=== PATIENT | female | born 1985 | race Caucasian/White ===

== ENCOUNTER 2023-03-22 10:07 | Emergency (ER) | payer OTHER, SELFPAY | END 2023-03-22 11:38 | disposition left against medical advice (07) | PROVIDERS: Emergency Provider Emergency Medicine Emergency Medical Services | DX: R10.9 Unspecified abdominal pain (principal) ==

== ENCOUNTER 2023-04-12 12:37 | Emergency (ER) | payer MEDICAID, SELFPAY ==
--- NOTE | ~2023-04-12 | CT_ITS ---
EXAMINATION: CT ABDOMEN AND PELVIS WITHOUT CONTRAST CLINICAL INFORMATION: Left flank pain. COMPARISON: Renal ultrasound 04/12/2023 TECHNIQUE: Multidetector volumetric imaging was performed from the superior aspect of the liver through the pubic symphysis. Sagittal and coronal reformatted images were obtained on the technologist's workstation. This CT examination was performed using dose optimization techniques as appropriate, variously including the following: *Automated exposure control *Adjustment of mA and/or kV according to patient size (this includes techniques or standardized protocols for targeted exams where dose is matched to indication/reason for exam; i.e. extremities or head) *Use of iterative reconstruction technique DLP: 747 mGy-cm FINDINGS: LUNG BASES: No pleural or pericardial effusion. LIVER, GALLBLADDER, AND BILIARY TREE: The liver is normal in size and contour. No focal hepatic lesion or biliary ductal dilatation is present. The gallbladder is unremarkable with no evidence of radiopaque gallstones, gallbladder wall thickening, or obvious pericholecystic inflammatory changes. PANCREAS: No ductal dilatation. SPLEEN: Enlarged. Measures 14.2 cm in AP dimension. ADRENAL GLANDS: No adrenal masses. KIDNEYS AND URETERS: The kidneys are lobulated. Hyperdensities the medullary pyramids. Nonobstructing bilateral renal calculi. The largest on the left measures 5 mm. The largest on the right measures 2 mm. No ureteral calculus. No hydronephrosis or perinephric stranding. BLADDER: No bladder calculus. GASTROINTESTINAL TRACT: Small and large bowel loops are of normal caliber. No small bowel obstruction. Appendix is within normal limits. ABDOMINAL WALL: No significant hernia is appreciated. LYMPH NODES: Stranding at the root of the mesentery with subcentimeter mesenteric lymph nodes. VASCULAR: Normal caliber abdominal aorta. PELVIC VISCERA: The uterus and adnexa are unremarkable. OSSEOUS STRUCTURES: No destructive bone lesions. CT/CT abdomen pelvis wo IV con IMPRESSION: Medullary nephrocalcinosis. Bilateral nonobstructing renal calculi. No hydronephrosis. Mesenteric edema. Splenomegaly.
--- NOTE | ~2023-04-12 | US_ITS ---
EXAMINATION: US RETROPERITONEAL LIMITED (RENAL ONLY) CLINICAL INFORMATION: Medullary sponge kidney. Left flank pain. COMPARISON: 08/10/2021 TECHNIQUE: Real-time imaging of the kidneys. FINDINGS: RIGHT KIDNEY: 10.3 x 4.3 x 5.4 cm (SAG x AP x TRV). Increased echogenicity of the medullary pyramids. No hydronephrosis. Upper pole cyst measures 0.9 x 0.8 x 0.6 cm. LEFT KIDNEY: 11.1 x 4.6 x 4.4 cm (SAG x AP x TRV). Increased echogenicity of the medullary pyramids. No hydronephrosis. Scattered foci of twinkle artifact may represent nonobstructing calculi. US/US renal BI IMPRESSION: Medullary sponge kidney. Possible nonobstructing left renal calculi. No hydronephrosis.
--- NOTE | 2023-04-12 12:39 | ED.ABDPAIN ---
HPI - Abdominal Pain General Chief Complaint: Abdominal Pain Stated Complaint: left side kidney stone pain Time Seen by Provider: 04/12/23 13:08 Source: patient Mode of arrival: ambulatory Limitations: no limitations History of Present Illness HPI narrative: Patient comes to the emergency room complaining of left-sided flank pain. Patient states that she has history of medullaris sponge kidney, she has had multiple bilateral lithotripsies. Today, around 3 in the morning, 10 hours ago, patient started having left-sided flank pain that woke her up from sleep. Patient denies hematuria dysuria, no abdominal pain, complaining of nausea. Patient took Toradol, Flomax, Zofran. Her symptoms decreased for about 2 hours but then they returned again and have been constant since then. Related Data Previous Rx's Medication Instructions Recorded ketorolac 10 mg tablet 10 mg PO TID PRN pain #14 tabs 04/12/23 tamsulosin 0.4 mg capsule (Flomax) 0.4 mg PO DAILY #14 caps 04/12/23 Allergies Allergy/AdvReac Type Severity Reaction Status Date / Time amoxicillin Allergy Rash Verified 04/12/23 12:42 droperidol Allergy Hallucinati Verified 04/12/23 12:42 ons morphine Allergy Vomiting Verified 04/12/23 12:42 Penicillins [PCN] Allergy Rash Verified 04/12/23 12:42 Review of Systems Review of Systems Constitutional : No Weight loss, No Fever, No Chills, No Night Sweats, No Fatigue, No Malaise ENT/Mouth : No Hearing loss, No Ear Pain, No Nasal Congestion, No Sinus Pain, No Hoarseness, No sore throat, No Rhinorrhea, No Swallowing Difficulty Eyes: No Eye Pain, No Swelling, No Redness, No Foreign Body, No Discharge, No Vision Changes Cardiovascular : No Chest Pain, No SOB, No Dyspnea on Exertion, No Orthopnea, No Edema, No Palpitations Respiratory : No Cough, No Sputum, No Wheezing, No Smoke Exposure, No Dyspnea Gastrointestinal : No Nausea, No Vomiting, No Diarrhea, No Constipation, No abdominal Pain, No Hematochezia, No Melena Genitourinary : no irregular bleeding, No Dysuria, No Urinary Frequency, No Hematuria, No Urinary Incontinence, No Urgency, complaining of left-sided Flank Pain, No Urinary Flow Changes, No Hesitancy Musculoskeletal : No joint pain, No Myalgias, No Joint Swelling Skin : No Skin Lesions, No rash Neuro : No Weakness, No Numbness, No Paresthesias, No Loss of Consciousness, No Dizziness, No Headache Psych : No Anxiety/Panic, No Depression, No SI/HI/AH/VH, No Social Issues, Heme/Lymph: No Bruising, No Bleeding,No Lymphadenopathy Endocrine : No Polyuria, No Polydipsia, No Temperature Intolerance [facility] Past Medical History Medical History (Updated 04/12/23 @ 15:58 by Dori Weldon MD) Medullary sponge kidney Surgical History (Updated 04/12/23 @ 13:19 by Dori Weldon MD) H/O lithotripsy Social History Social History Smoked in Last 30 Days: No Use of substances other than those prescribed or required for medical reasons: No Advance Directives: No Physical Exam ED Vital Signs: Vital Signs - 24 hr 04/12/23 12:42 04/12/23 13:43 04/12/23 14:33 Temperature 97.1 F 98.2 F Pulse Rate 88 80 76 Respiratory Rate 18 16 19 Blood Pressure 142/77 H 114/64 104/70 Pulse Oximetry 97 98 98 Oxygen Delivery Method Room Air Room Air BMI result Body Mass Index 37.8 Const Other: Appearance: Alert. Oriented X3. No acute distress but looks uncomfortable Eyes: Pupils equal, round and reactive to light. ENT: Pharynx normal. Neck: Normal inspection. Neck supple. No lymph nodes noted. No crepitus CVS: Normal heart rate and rhythm. Pulses normal. Normal S1 and S2 Respiratory: No respiratory distress. Breath sounds normal. No Wheezing. No rales Abdomen: Soft and nontender. No rigidity. No distention. Left-sided CVA tenderness Skin: Skin warm and dry. Normal skin color. Normal skin turgor. Extremities: No lower extremity edema. No Lacerations. No Rash Neuro: Oriented X 3. No motor deficit. No sensory deficit. Moving all extremities. No slurred speech. CN 2 through 12 grossly intact Psych: calm, cooperative, normal affect Course Course Course Narrative: RME: 37yo F w/PMHx Medullary Sponge kidney c/o L flank pain, nausea and urinary hesitancy x 3AM. Took Toradol, Flomax & Zofran this AM w/little relief Labs, UA, Renal US, IVF ordered Full HPI, ROS and PE to be performed by primary ED provider. Medical Decision Making Medical Decision Making [facility] Narrative: -patient seems to be mildly dehydrated, receiving IV fluids, Toradol, Zofran -labs and ultrasound pending -patient's potassium level is 3.0, patient being given p.o. potassium. -creatinine levels within normal limits, BUN normal as well. Urinalysis positive for blood, likely secondary to kidney stone versus blood from current menstruatio. Note UTI -patient continues having significant left-sided flank pain. Toradol did not help, patient receiving now 1 dose of Dilaudid, patient states she does not do well with morphine. Medications seeking not suspected -CT scan of abdomen/pelvis pending -I discussed the CT scan findings with the patient, no ureterolithiasis. It is possible the patient may have passed a kidney stone and is now having renal colic. -patient requested 1 more dose of Dilaudid. Differential Diagnosis Differential Diagnoses: The differential diagnosis associated with the presentation includes (Ureterolithiasis, pyelonephritis, renal infarct, musculoskeletal pain) Admission/Observation Consideration of admission/observation: Escalation of care including admission/observation considered Lab Data [facility] Lab Attestation statement: I reviewed the patient's lab results. White blood cell count within normal limits, UTI negative, urinalysis positive for blood from menstruation 04/12/23 13:22 04/12/23 13:22 Labs: Lab Results 04/12/23 04/12/23 04/12/23 Range/Units 13:22 13:22 13:22 WBC 9.4 (4.8-10.8) X10*3/uL RBC 4.82 (4.20-5.50) X10*6/uL Hgb 13.0 (12.0-16.0) g/dl Hct 38.6 (37.0-47.0) % MCV 80.1 (80.0-98.0) fL MCH 27.0 (27.0-33.0) pg MCHC 33.7 (31.0-35.0) g/dl RDW 13.8 (11.0-16.0) % Plt Count 229 (160-400) X10*3/uL MPV 9.6 (9.4-12.3) fL Immature Gran % (Auto) 0.4 (0.0-0.4) % Neut % (Auto) 68.4 (45-73) % Lymph % (Auto) 23.0 (20-40) % [place] % (Auto) 5.2 (2-11) % Eos % (Auto) 2.4 (0-4) % Baso % (Auto) 0.6 (0-2) % Lymph # (Auto) 2.2 (1.2-4.9) X10*3/uL [place] # (Auto) 0.5 (0.1-1.2) X10*3/uL Eos # (Auto) 0.2 (0.0-0.4) X10*3/uL Baso # (Auto) 0.1 (0.0-0.2) X10*3/uL Abs Immat Gran (auto) 0.04 H (0.00-0.03) X10*3/uL Absolute Neuts (auto) 6.4 (2.0-8.3) x10*3/uL Absolute Nucleated RBC 0.000 (0.0-0.012) X10*3/uL Nucleated RBC % (auto) 0.0 (0.0-0.2) /100WBC PT 11.7 (10.0-13.1) SEC INR 1.0 (0.9-1.1) Sodium 135 (135-145) mmol/L Potassium 3.0 L (3.3-5.1) mmol/L Chloride 101 (96-108) mmol/L Carbon Dioxide 27 (22-29) mmol/L Anion Gap 10 L (12-20) BUN 12 (9-16) mg/dL Creatinine 0.83 (0.5-1.4) mg/dL Estim Creat Clear Calc 108.5 Estimated GFR > 60 Random Glucose 85 (60-115) mg/dL Calcium 9.7 (8.4-10.2) mg/dL Magnesium 1.8 (1.6-2.6) mg/dL Total Bilirubin 0.7 (0.0-1.0) mg/dL Direct Bilirubin 0.2 (0.0-0.5) mg/dL AST 25 (5-31) U/L ALT 23 (0-31) U/L Alkaline Phosphatase 81 (39-117) U/L Total Protein 7.8 (6.5-8.0) g/dL Albumin 3.9 (3.5-5.0) g/dL Lipase 25 (8-78) U/L Urine Color Urine Appearance Urine pH (5.0-9.0) Ur Specific [place] (1.005-1.025) Urine Protein (Neg-Trace) mg/dL Urine Glucose (UA) (Negative) mg/dL Urine Ketones (Negative) mg/dL Urine Blood (Negative) Urine Nitrite (Negative) Ur Leukocyte Esterase (Negative) Urine RBC (0-2) /HPF Urine WBC (0-5) /HPF Ur Squamous Epith Cells (0-2) /HPF Urine Bacteria (None Seen) Hyaline Casts (0-2) /LPF 04/12/23 Range/Units 13:23 WBC (4.8-10.8) X10*3/uL RBC (4.20-5.50) X10*6/uL Hgb (12.0-16.0) g/dl Hct (37.0-47.0) % MCV (80.0-98.0) fL MCH (27.0-33.0) pg MCHC (31.0-35.0) g/dl RDW (11.0-16.0) % Plt Count (160-400) X10*3/uL MPV (9.4-12.3) fL Immature Gran % (Auto) (0.0-0.4) % Neut % (Auto) (45-73) % Lymph % (Auto) (20-40) % [place] % (Auto) (2-11) % Eos % (Auto) (0-4) % Baso % (Auto) (0-2) % Lymph # (Auto) (1.2-4.9) X10*3/uL [place] # (Auto) (0.1-1.2) X10*3/uL Eos # (Auto) (0.0-0.4) X10*3/uL Baso # (Auto) (0.0-0.2) X10*3/uL Abs Immat Gran (auto) (0.00-0.03) X10*3/uL Absolute Neuts (auto) (2.0-8.3) x10*3/uL Absolute Nucleated RBC (0.0-0.012) X10*3/uL Nucleated RBC % (auto) (0.0-0.2) /100WBC PT (10.0-13.1) SEC INR (0.9-1.1) Sodium (135-145) mmol/L Potassium (3.3-5.1) mmol/L Chloride (96-108) mmol/L Carbon Dioxide (22-29) mmol/L Anion Gap (12-20) BUN (9-16) mg/dL Creatinine (0.5-1.4) mg/dL Estim Creat Clear Calc Estimated GFR Random Glucose (60-115) mg/dL Calcium (8.4-10.2) mg/dL Magnesium (1.6-2.6) mg/dL Total Bilirubin (0.0-1.0) mg/dL Direct Bilirubin (0.0-0.5) mg/dL AST (5-31) U/L ALT (0-31) U/L Alkaline Phosphatase (39-117) U/L Total Protein (6.5-8.0) g/dL Albumin (3.5-5.0) g/dL Lipase (8-78) U/L Urine Color Yellow Urine Appearance Clear Urine pH 7.5 (5.0-9.0) Ur Specific [place] 1.020 (1.005-1.025) Urine Protein Negative (Neg-Trace) mg/dL Urine Glucose (UA) Negative (Negative) mg/dL Urine Ketones Negative (Negative) mg/dL Urine Blood Moderate (2+) H (Negative) Urine Nitrite Negative (Negative) Ur Leukocyte Esterase Negative (Negative) Urine RBC >20 H (0-2) /HPF Urine WBC 6-10 H (0-5) /HPF Ur Squamous Epith Cells 6-10 (0-2) /HPF Urine Bacteria 1+ (None Seen) Hyaline Casts 0-2 (0-2) /LPF Independent Interpretation I performed an independent interpretation of an: CT Scan (My interpretation of CT scan of the abdomen pelvis: No ureterolithiasis, stones present in left kidney) Radiology Impression Discussion of test interpretation with radiology: I have reviewed the radiologist's reading. Radiologist Impression: FINDINGS: LUNG BASES: No pleural or pericardial effusion.? LIVER, GALLBLADDER, AND BILIARY TREE: The liver is normal in size and contour. No focal hepatic lesion or biliary ductal dilatation is present. The gallbladder is unremarkable with no evidence of radiopaque gallstones, gallbladder wall thickening, or obvious pericholecystic inflammatory changes.? PANCREAS: No ductal dilatation. SPLEEN: Enlarged. Measures 14.2 cm in AP dimension. ADRENAL GLANDS: No adrenal masses. KIDNEYS AND URETERS: The kidneys are lobulated. Hyperdensities the medullary pyramids. Nonobstructing bilateral renal calculi. The largest on the left measures 5 mm. The largest on the right measures 2 mm. No ureteral calculus. No hydronephrosis or perinephric stranding. BLADDER: No bladder calculus. GASTROINTESTINAL TRACT: Small and large bowel loops are of normal caliber. No small bowel obstruction. Appendix is within normal limits. ABDOMINAL WALL: No significant hernia is appreciated.? LYMPH NODES: Stranding at the root of the mesentery with subcentimeter mesenteric lymph nodes. VASCULAR: Normal caliber abdominal aorta. PELVIC VISCERA: The uterus and adnexa are unremarkable.? OSSEOUS STRUCTURES: No destructive bone lesions. CT/CT abdomen pelvis wo IV con IMPRESSION: Medullary nephrocalcinosis. Bilateral nonobstructing renal calculi. No hydronephrosis. ? Mesenteric edema. ? Splenomegaly. Prescription Management I considered prescription management with: Pain Medication (Toradol, 1st dose given IV in the emergency room) Medications Administered Discontinued Medications Generic Name Dose Route Start Last Admin Trade Name Freq PRN Reason Stop Dose Admin Hydromorphone HCl 0.5 mg 04/12/23 14:10 04/12/23 14:31 Hydromorphone Hcl 0.5 Mg/0.5 Ml Syringe IVPUSH 04/12/23 14:11 0.5 mg ONCE ONE Administration Protocol Sodium Chloride 1,000 mls @ 999 mls/hr 04/12/23 12:45 04/12/23 15:02 Ns IV 04/12/23 13:45 Infused .Q1H1M HARRY Infusion Ketorolac Tromethamine 30 mg 04/12/23 13:16 04/12/23 13:40 Ketorolac Tromethamine 30 Mg/Ml Vial IVPUSH 04/12/23 13:17 30 mg ONCE ONE Administration Ondansetron HCl 4 mg 04/12/23 13:16 04/12/23 13:42 Ondansetron Hcl 4 Mg/2 Ml Vial IVPUSH 04/12/23 13:17 4 mg ONCE ONE Administration Potassium Chloride 40 meq 04/12/23 14:10 04/12/23 14:33 Potassium Chloride Packet 20 Meq Packet PO 04/12/23 14:11 40 meq ONCE ONE Administration Critical Care Time Critical Care Time Critical Care Time: Yes Total Critical Care Time: 30 Attestation: I have personally provided critical care time. Time includes review of lab data, radiology results, discussion with consultants, and monitoring for potential decompensation. Intervention performed as documented. Discharge Plan Discharge Clinical Impression: Acute left flank pain Patient Disposition: Home, Self-Care Instructions: Flank Pain (ED) Additional Instructions: Please follow-up with your primary care physician tomorrow. If you have any worsening or new symptoms, please return to the emergency room or call 911 Prescriptions: New ketorolac 10 mg tablet 10 mg PO TID PRN (Reason: pain) Qty: 14 0RF tamsulosin [Flomax] 0.4 mg capsule 0.4 mg PO DAILY Qty: 14 0RF
[2023-04-12 12:42] VITALS: BP 142/77; PULSE 88; RESP 18; TEMP 36.2; O2SAT 97; BMI 37.8
[2023-04-12 13:34] LABS: Basophils Absolute Auto 0.1 X10*3/uL (0.0-0.2); Basophils Percent Auto 0.6 % (0-2); Eosinophils Absolute Auto 0.2 X10*3/uL (0.0-0.4); Eosinophils Percent Auto 2.4 % (0-4); Hematocrit 38.6 % (37.0-47.0); Imm Gran Abs Auto 0.04 X10*3/uL (0.00-0.03); Imm Gran Pct Auto 0.4 % (0.0-0.4); Lymphocytes Absolute Auto 2.2 X10*3/uL (1.2-4.9); MANUAL DIFF FLAG NO; Mean Corpuscular HGB Conc 33.7 g/dl (31.0-35.0); Mean Corpuscular Volume 80.1 fL (80.0-98.0); Mean Platelet Volume 9.6 fL (9.4-12.3); Monocytes Absolute Auto 0.5 X10*3/uL (0.1-1.2); Monocytes Percent Auto 5.2 % (2-11); Neutrophils Absolute Auto 6.4 x10*3/uL (2.0-8.3); Neutrophils Percent Auto 68.4 % (45-73); Platelet Count 229 X10*3/uL (160-400); Red Blood Count 4.82 X10*6/uL (4.20-5.50); Red Cell Distribution Width 13.8 % (11.0-16.0); White Blood Count 9.4 X10*3/uL (4.8-10.8)
[2023-04-12 13:36] LABS: Appearance Urine Clear; Color Urine Yellow; Glucose Urine UA Negative (Negative); Leukocyte Esterase Urine Negative (Negative); Nitrite Urine Negative (Negative); PH 7.5 (5.0-9.0); UMIC TRIGGER UACC YES; Urine Blood Moderate (2+) (Negative); Urine Ketones Negative (Negative); Urine Protein Negative (Neg-Trace)
[2023-04-12] MEDS: Ketorolac Tromethamine 30 MG/ML VIAL IVPUSH (13:40)
[2023-04-12] MEDS: 0.9 % Sodium Chloride 1,000 ML 999 ML IV (13:40)
[2023-04-12 13:42] LABS: Bacteria Urine 1+ (None Seen); Hyaline Casts Urine 0-2 /LPF (0-2); RBC Urine >20 /HPF (0-2); UACC Culture Trigger YES
[2023-04-12 13:42] LABS: Prothrombin Time 11.7 SEC (10.0-13.1)
[2023-04-12] MEDS: ondansetron HCL 4 MG/2 ML VIAL IVPUSH (13:42)
[2023-04-12 13:43] VITALS: BP 114/64; PULSE 80; RESP 16; TEMP 36.8; O2SAT 98
[2023-04-12 14:09] LABS: Alanine Aminotransferase 23 U/L (0-31); Albumin Level 3.9 g/dL (3.5-5.0); Alkaline Phosphatase 81 U/L (39-117); Anion Gap 10 (12-20); Aspartate Amino Transferase 25 U/L (5-31); Bilirubin Direct 0.2 mg/dL (0.0-0.5); Bilirubin Total 0.7 mg/dL (0.0-1.0); Blood Urea Nitrogen 12 mg/dL (9-16); Calcium 9.7 mg/dL (8.4-10.2); Carbon Dioxide 27 mmol/L (22-29); Chloride 101 mmol/L (96-108); Creatinine Clr Calc Pharmacy 108.5; Estimated Glomerular Filt Rate > 60; Glucose Random 85 mg/dL (60-115); Lipase 25 U/L (8-78); Magnesium 1.8 mg/dL (1.6-2.6); Sodium 135 mmol/L (135-145); Total Protein 7.8 g/dL (6.5-8.0)
[2023-04-12] MEDS: HYDROmorphone HCl 0.5 MG/0.5 ML SYRINGE IVPUSH ×2 (14:31→16:13)
[2023-04-12 14:33] VITALS: BP 104/70; PULSE 76; RESP 19; O2SAT 98
[2023-04-12] MEDS: Potassium Chloride Packet 20 MEQ PACKET 40 MEQ PO (14:33)
[2023-04-12 16:12] VITALS: BP 111/54; PULSE 72; RESP 16; TEMP 36.7; O2SAT 98
[2023-04-12 16:13] VITALS: RESP 16
== END 2023-04-12 16:24 | disposition home or self-care (01) ==
PROVIDERS: Physician Assistant; Emergency Provider Emergency Medicine
DX: R10.9 Unspecified abdominal pain (principal); R16.1 Splenomegaly, not elsewhere classified; Z79.899 Other long term (current) drug therapy
CPT/HCPCS: 36415; 74176; 76775; 80048; 80076; 81001; 83690; 83735; 85025; 85610; 87086; 96361; 96374; 96375; 96376; 99284; 99285; J1170; J1885; J2405

== ENCOUNTER 2023-06-16 18:04 | Emergency (ER) | payer MEDICAID, SELFPAY ==
--- NOTE | 2023-06-16 18:20 | PC.NURSE ---
PT REFUSING TO BE TRIAGED. STATED SHE PASSED HER KIDNEY STONE AND DOES NOT WANT TO SPEAK TO STAFF.
== END 2023-06-17 03:14 | disposition left against medical advice (07) ==
PROVIDERS: Emergency Provider Emergency Medicine
DX: R10.9 Unspecified abdominal pain (principal)

== ENCOUNTER 2023-06-17 17:59 | Emergency (ER) | payer OTHER, SELFPAY ==
--- NOTE | ~2023-06-17 | US_ITS ---
EXAMINATION: US RETROPERITONEAL LIMITED (RENAL ONLY) CLINICAL INFORMATION: Right flank pain. History of medullary sponge kidney. COMPARISON: Portions of CT 04/12/23 TECHNIQUE: Bilateral renal ultrasound FINDINGS: RIGHT KIDNEY: 10.0 x 4.3 x 4.8 cm (SAG x AP x TRV). There is increased echogenicity of the medullary pyramids. The cortex is relatively thin. There is no dilation of the urinary collecting system. There is a 1.2 cm round mass in the mid right kidney with some dependent bright echoes. This could represent a complicated cyst. Bright reflectors within the region of the medullary pyramids could be related to medullary sponge disease. LEFT KIDNEY: 11.1 x 4.5 x 4.8 cm (SAG x AP x TRV). There is no dilation of the urinary collecting system on the left. There are innumerable scattered tiny bright reflectors in the region of the medullary pyramids. No suspicious mass or perinephric collection US/US renal BI IMPRESSION: Pattern consistent with medullary sponge kidneys. Numerous bright reflectors likely secondary to tiny calculi. No evidence of obstruction
[2023-06-17 18:36] VITALS: BP 124/88; PULSE 101; RESP 18; TEMP 36.7; O2SAT 97; BMI 35.3
--- NOTE | 2023-06-17 18:36 | ED.ABDPAIN ---
HPI - Abdominal Pain General Chief Complaint: Abdominal Pain Stated Complaint: Rightside kidneystone pain Time Seen by Provider: 06/17/23 20:20 Source: patient Mode of arrival: ambulatory Limitations: no limitations History of Present Illness HPI narrative: 37-year-old female with history of multiple kidney stones since age of 18 who presents to the ER for evaluation of a right-sided flank pain and kidney pain it is that worsened today at 4-5:00 o'clock. She states she had acute onset of the pain yesterday morning, pain woke her up out of sleep. She thinks she passed a small kidney stone yesterday. She has been taking Flomax, Zofran and Toradol at home. She states she follows with urologist and has had several episodes of kidney stones which she has passed on her own, up to 11 mm. She has never required lithotripsy. She denies any dysuria or gross hematuria. No fever but she has had chills and nausea. No vomiting. No abdominal pain. MD elicited complaint: flank pain Pertinent past history: kidney stones Onset (ago): day(s) (1) Pain Consistency: constant Location: R flank Severity: severe Pain scale (0-10): 10 Quality: stabbing and sharp Radiation: none Migration to: no migration Exacerbating factors: movement Relieving factors: medication Context: history of similar episodes Associated symptoms: nausea and chills Treatments prior to arrival: NSAIDs Related Data Previous Rx's Medication Instructions Recorded ketorolac 10 mg tablet 10 mg PO TID PRN pain #14 tabs 04/12/23 tamsulosin 0.4 mg capsule (Flomax) 0.4 mg PO DAILY #14 caps 04/12/23 cefuroxime axetil 250 mg tablet 250 mg PO BID 7 days #14 tabs 06/17/23 oxycodone 5 mg tablet 5 mg PO Q8H PRN severe pain (scale 06/17/23 score 7-10) #6 tabs Allergies Allergy/AdvReac Type Severity Reaction Status Date / Time amoxicillin Allergy Rash Verified 04/12/23 12:42 droperidol Allergy Hallucinati Verified 04/12/23 12:42 ons morphine Allergy Vomiting Verified 04/12/23 12:42 Penicillins [PCN] Allergy Rash Verified 04/12/23 12:42 Review of Systems Review of Systems Yes all other systems are reviewed and are negative PMFSH Past Medical History Medical History (Updated 06/17/23 @ 22:27 by ERIKA De Leon) Medullary sponge kidney Surgical History (Updated 04/12/23 @ 13:19 by Dori Weldon MD) H/O lithotripsy Social History Social History Alcohol intake: never Smoked in Last 30 Days: No Use of substances other than those prescribed or required for medical reasons: No Advance Directives: No Advance Directives Information Provided: Yes Patient : No Physical Exam ED Vital Signs: Vital Signs - 24 hr 06/17/23 18:36 06/17/23 19:41 Temperature 98.0 F Pulse Rate 101 H 88 Respiratory Rate 18 18 Blood Pressure 124/88 129/85 Pulse Oximetry 97 96 Oxygen Delivery Method Room Air Room Air BMI result Body Mass Index 35.3 Appearance: Alert. Oriented X3. No acute distress. Head: normocephalic, atraumatic. Eyes: Pupils equal, round and reactive to light. ENT: Pharynx normal. No tonsillar swelling or exudate. Neck: Normal inspection. Neck supple. CVS: Normal heart rate and rhythm. Pulses normal. Respiratory: No respiratory distress. Breath sounds normal. Abdomen: Soft and nontender. +BS x4. CVA tenderness on the right side. Skin: Skin warm and dry. Normal skin color. Normal skin turgor. No rashes. Extremities: No lower extremity edema. No joint swelling. Neuro/psych: Oriented X 3. Grossly normal, nonfocal. CN II-XII intact. Normal speech and cognition. Course Course Course Narrative: RME: 37yo F w/PMHx Medullary sponge kidney c/o right flank pain x yesterday with assoc nausea, hematuria, frequency, & chills . Admits to passing small stone yesterday. Took Zofran & Toradol 2hrs [employer] Labs, UA, Renal US ordered Full HPI, ROS and PE to be performed by primary ED provider. Medical Decision Making Medical Decision Making MDM Narrative: 37-year-old female with history of recurrent kidney stones presents to the ER for evaluation of right flank pain and nausea that woke her up out of sleep yesterday. She passed a small stone yesterday. She states the pain is now at 10/10 for the last several hours, no improvement with Toradol at home. Vital signs are stable. Mild tachycardia on arrival, likely due to pain. No fevers. Lab workup showing a mild leukocytosis of 13.3. Normal renal function. Urinalysis shows microscopic hematuria with large blood, trace leukocyte esterase and 6-10 wbc's. There is 2+ bacteria but also some squamous cells. Could be contamination. Given the leukocytosis and her symptoms will cover empirically with Ceftin while awaiting her urine culture. Renal ultrasound was performed which does not show any hydronephrosis or obstruction of the urinary collection system. No obstructing stones. Patient was medicated with Dilaudid, Toradol, fluids. She is urinating normally. Pain is much improved. At this time comfortable discharge home with pain control, empiric antibiotics, Flomax, NSAIDs. She will follow-up with her urologist. Stable for discharge in all questions were answered. Return precautions were discussed Differential Diagnosis Differential Diagnoses: The differential diagnosis associated with the presentation includes Obstructing kidney stone with hydronephrosis, pyelonephritis, renal colic, UTI, acute cholecystitis Admission/Observation Consideration of admission/observation: Escalation of care including admission/observation considered Lab Data MDM Lab Attestation statement: I reviewed the patient's lab results. Mild leukocytosis, possible UTI 06/17/23 18:50 06/17/23 18:50 Labs: Lab Results 06/17/23 06/17/23 06/17/23 Range/Units 18:50 18:50 18:50 WBC 13.3 H (4.8-10.8) X10*3/uL RBC 4.74 (4.20-5.50) X10*6/uL Hgb 12.6 (12.0-16.0) g/dl Hct 37.7 (37.0-47.0) % MCV 79.5 L (80.0-98.0) fL MCH 26.6 L (27.0-33.0) pg MCHC 33.4 (31.0-35.0) g/dl RDW 14.0 (11.0-16.0) % Plt Count 257 (160-400) X10*3/uL MPV 9.7 (9.4-12.3) fL Immature Gran % (Auto) 0.4 (0.0-0.4) % Neut % (Auto) 64.5 (45-73) % Lymph % (Auto) 26.6 (20-40) % [place] % (Auto) 5.6 (2-11) % Eos % (Auto) 2.3 (0-4) % Baso % (Auto) 0.6 (0-2) % Lymph # (Auto) 3.5 (1.2-4.9) X10*3/uL [place] # (Auto) 0.7 (0.1-1.2) X10*3/uL Eos # (Auto) 0.3 (0.0-0.4) X10*3/uL Baso # (Auto) 0.1 (0.0-0.2) X10*3/uL Abs Immat Gran (auto) 0.05 H (0.00-0.03) X10*3/uL Absolute Neuts (auto) 8.6 H (2.0-8.3) x10*3/uL Absolute Nucleated RBC 0.000 (0.0-0.012) X10*3/uL Nucleated RBC % (auto) 0.0 (0.0-0.2) /100WBC Sodium 141 (135-145) mmol/L Potassium 3.3 (3.3-5.1) mmol/L Chloride 104 (96-108) mmol/L Carbon Dioxide 27 (22-29) mmol/L Anion Gap 13 (12-20) BUN 15 (9-16) mg/dL Creatinine 1.05 (0.5-1.4) mg/dL Estim Creat Clear Calc 85.8 Estimated GFR 60 Random Glucose 117 H (60-115) mg/dL Calcium 10.0 (8.4-10.2) mg/dL Magnesium 1.9 (1.6-2.6) mg/dL Total Bilirubin 0.2 (0.0-1.0) mg/dL Direct Bilirubin < 0.2 (0.0-0.5) mg/dL AST 20 (5-31) U/L ALT 20 (0-31) U/L Alkaline Phosphatase 78 (39-117) U/L Total Protein 7.7 (6.5-8.0) g/dL Albumin 4.0 (3.5-5.0) g/dL Lipase 48 (8-78) U/L Urine Color Yellow Urine Appearance Clear Urine pH 6.0 (5.0-9.0) Ur Specific [place] 1.025 (1.005-1.025) Urine Protein 30 (1+) H (Neg-Trace) mg/dL Urine Glucose (UA) Negative (Negative) mg/dL Urine Ketones Trace (Negative) mg/dL Urine Blood Large (3+) H (Negative) Urine Nitrite Negative (Negative) Ur Leukocyte Esterase Trace H (Negative) Urine RBC 0-2 (0-2) /HPF Urine WBC 6-10 H (0-5) /HPF Ur Squamous Epith Cells 6-10 (0-2) /HPF Urine Bacteria 2+ (None Seen) Hyaline Casts 0-2 (0-2) /LPF Urine Test (NEGATIVE) 06/17/23 Range/Units 18:50 WBC (4.8-10.8) X10*3/uL RBC (4.20-5.50) X10*6/uL Hgb (12.0-16.0) g/dl Hct (37.0-47.0) % MCV (80.0-98.0) fL MCH (27.0-33.0) pg MCHC (31.0-35.0) g/dl RDW (11.0-16.0) % Plt Count (160-400) X10*3/uL MPV (9.4-12.3) fL Immature Gran % (Auto) (0.0-0.4) % Neut % (Auto) (45-73) % Lymph % (Auto) (20-40) % [place] % (Auto) (2-11) % Eos % (Auto) (0-4) % Baso % (Auto) (0-2) % Lymph # (Auto) (1.2-4.9) X10*3/uL [place] # (Auto) (0.1-1.2) X10*3/uL Eos # (Auto) (0.0-0.4) X10*3/uL Baso # (Auto) (0.0-0.2) X10*3/uL Abs Immat Gran (auto) (0.00-0.03) X10*3/uL Absolute Neuts (auto) (2.0-8.3) x10*3/uL Absolute Nucleated RBC (0.0-0.012) X10*3/uL Nucleated RBC % (auto) (0.0-0.2) /100WBC Sodium (135-145) mmol/L Potassium (3.3-5.1) mmol/L Chloride (96-108) mmol/L Carbon Dioxide (22-29) mmol/L Anion Gap (12-20) BUN (9-16) mg/dL Creatinine (0.5-1.4) mg/dL Estim Creat Clear Calc Estimated GFR Random Glucose (60-115) mg/dL Calcium (8.4-10.2) mg/dL Magnesium (1.6-2.6) mg/dL Total Bilirubin (0.0-1.0) mg/dL Direct Bilirubin (0.0-0.5) mg/dL AST (5-31) U/L ALT (0-31) U/L Alkaline Phosphatase (39-117) U/L Total Protein (6.5-8.0) g/dL Albumin (3.5-5.0) g/dL Lipase (8-78) U/L Urine Color Urine Appearance Urine pH (5.0-9.0) Ur Specific [place] (1.005-1.025) Urine Protein (Neg-Trace) mg/dL Urine Glucose (UA) (Negative) mg/dL Urine Ketones (Negative) mg/dL Urine Blood (Negative) Urine Nitrite (Negative) Ur Leukocyte Esterase (Negative) Urine RBC (0-2) /HPF Urine WBC (0-5) /HPF Ur Squamous Epith Cells (0-2) /HPF Urine Bacteria (None Seen) Hyaline Casts (0-2) /LPF Urine Test NEGATIVE (NEGATIVE) Independent Interpretation I performed an independent interpretation of an: Ultrasound Interpretation: No appreciated hydronephrosis, agree with radiologist read Radiology Impression Discussion of test interpretation with radiology: I have reviewed the radiologist's reading. Radiologist Impression: EXAMINATION: US RETROPERITONEAL LIMITED (RENAL ONLY) CLINICAL INFORMATION: Right flank pain. History of medullary sponge kidney. COMPARISON: Portions of CT 04/12/23 TECHNIQUE: Bilateral renal ultrasound FINDINGS: RIGHT KIDNEY: 10.0 x 4.3 x 4.8 cm (SAG x AP x TRV). There is increased echogenicity of the medullary pyramids. The cortex is relatively thin. There is no dilation of the urinary collecting system. There is a 1.2 cm round mass in the mid right kidney with some dependent bright echoes. This could represent a complicated cyst. Bright reflectors within the region of the medullary pyramids could be related to medullary sponge disease. LEFT KIDNEY: 11.1 x 4.5 x 4.8 cm (SAG x AP x TRV). There is no dilation of the urinary collecting system on the left. There are innumerable scattered tiny bright reflectors in the region of the medullary pyramids. No suspicious mass or perinephric collection US/US renal BI IMPRESSION: Pattern consistent with medullary sponge kidneys. ? Numerous bright reflectors likely secondary to tiny calculi. ? No evidence of obstruction External Record Review External record reviewed: Outpatient record and Prior outpatient labs Tests considered The following testing was considered but not selected: CT scan considered Prescription Management I considered prescription management with: Pain Medication and Antibiotic Chronic Conditions Patient?s care impacted by: Other (recurrent kidney stones) Medications Administered Discontinued Medications Generic Name Dose Route Start Last Admin Trade Name Freq PRN Reason Stop Dose Admin Cefuroxime Axetil 500 mg 06/17/23 22:24 06/17/23 22:39 Cefuroxime Axetil 500 Mg Tablet PO 06/17/23 22:25 500 mg ONCE ONE Administration Hydromorphone HCl 1 mg 06/17/23 20:35 06/17/23 20:41 Hydromorphone Hcl 1 Mg/Ml Syringe IVPUSH 06/17/23 20:36 1 mg ONCE ONE Administration Protocol Sodium Chloride 1,000 mls @ 999 mls/hr 06/17/23 20:30 06/17/23 21:57 Ns IVCONT 06/17/23 21:30 Infused .Q1H1M HARRY Infusion Ketorolac Tromethamine 30 mg 06/17/23 20:24 06/17/23 20:40 Ketorolac Tromethamine 30 Mg/Ml Vial IVPUSH 06/17/23 20:25 30 mg ONCE ONE Administration Ondansetron HCl 4 mg 06/17/23 20:24 06/17/23 20:41 Ondansetron Hcl 4 Mg/2 Ml Vial IVPUSH 06/17/23 20:25 4 mg ONCE ONE Administration Oxycodone HCl 5 mg 06/17/23 21:30 06/17/23 21:37 Oxycodone Hcl Immed Release 5 Mg Tablet PO 06/17/23 21:31 5 mg ONCE ONE Administration Critical Care Time Critical Care Time Critical Care Time: No Discharge Plan Discharge Clinical Impression: Renal colic Patient Disposition: Home, Self-Care Instructions: Renal Colic (ED) Additional Instructions: Your ultrasound did not show any evidence of an obstructing kidney stone. Take her previously prescribed Toradol or ibuprofen as needed for [id number] pain. Recommend starting Flomax. Take the prescribed oxycodone as needed for severe pain only. Drink plenty of water. Follow-up with your urologist and primary care doctor. If you develop new or worsening symptoms call 911 or come back to the ER for further evaluation. Prescriptions: New cefuroxime axetil 250 mg tablet 250 mg PO BID 7 Days Qty: 14 0RF oxycodone 5 mg tablet 5 mg PO Q8H PRN (Reason: severe pain (scale score 7-10)) Qty: 6 0RF Rx Instructions: Partial Fill upon patient request. No Action ketorolac 10 mg tablet 10 mg PO TID PRN (Reason: pain) Qty: 14 0RF tamsulosin [Flomax] 0.4 mg capsule 0.4 mg PO DAILY Qty: 14 0RF Interventions: ED Discharge Assessment Last Done: 06/17/23 22:54 Discharge Date/Time: 06/17/23 22:56
[2023-06-17 18:55] LABS: MANUAL DIFF FLAG NO
[2023-06-17 18:59] LABS: Appearance Urine Clear; Color Urine Yellow; Glucose Urine UA Negative (Negative); Leukocyte Esterase Urine Trace (Negative); Nitrite Urine Negative (Negative); Specific Gravity - Urine 1.025 (1.005-1.025); UMIC TRIGGER UACC YES; Urine Blood Large (3+) (Negative); Urine Ketones Trace mg/dL (Negative); Urine Protein 30 (1+) mg/dL (Neg-Trace)
[2023-06-17 19:00] LABS: UPreg QC Valid YES; Urine Pregnancy NEGATIVE (NEGATIVE)
[2023-06-17 19:02] LABS: Basophils Absolute Auto 0.1 X10*3/uL (0.0-0.2); Basophils Percent Auto 0.6 % (0-2); Eosinophils Absolute Auto 0.3 X10*3/uL (0.0-0.4); Eosinophils Percent Auto 2.3 % (0-4); Hematocrit 37.7 % (37.0-47.0); Hemoglobin 12.6 g/dl (12.0-16.0); Imm Gran Abs Auto 0.05 X10*3/uL (0.00-0.03); Imm Gran Pct Auto 0.4 % (0.0-0.4); Lymphocytes Absolute Auto 3.5 X10*3/uL (1.2-4.9); Lymphocytes Percent Auto 26.6 % (20-40); Mean Corpuscular HGB Conc 33.4 g/dl (31.0-35.0); Mean Corpuscular Hemoglobin 26.6 pg (27.0-33.0); Mean Corpuscular Volume 79.5 fL (80.0-98.0); Mean Platelet Volume 9.7 fL (9.4-12.3); Monocytes Absolute Auto 0.7 X10*3/uL (0.1-1.2); Monocytes Percent Auto 5.6 % (2-11); Neutrophils Absolute Auto 8.6 x10*3/uL (2.0-8.3); Neutrophils Percent Auto 64.5 % (45-73); Platelet Count 257 X10*3/uL (160-400); Red Blood Count 4.74 X10*6/uL (4.20-5.50); White Blood Count 13.3 X10*3/uL (4.8-10.8)
[2023-06-17 19:16] LABS: Alanine Aminotransferase 20 U/L (0-31); Alkaline Phosphatase 78 U/L (39-117); Anion Gap 13 (12-20); Aspartate Amino Transferase 20 U/L (5-31); Bilirubin Direct < 0.2 mg/dL (0.0-0.5); Bilirubin Total 0.2 mg/dL (0.0-1.0); Blood Urea Nitrogen 15 mg/dL (9-16); Carbon Dioxide 27 mmol/L (22-29); Chloride 104 mmol/L (96-108); Creatinine Clr Calc Pharmacy 85.8; Estimated Glomerular Filt Rate 60; Glucose Random 117 mg/dL (60-115); Lipase 48 U/L (8-78); Magnesium 1.9 mg/dL (1.6-2.6); Potassium 3.3 mmol/L (3.3-5.1); Sodium 141 mmol/L (135-145); Total Protein 7.7 g/dL (6.5-8.0)
[2023-06-17 19:18] LABS: Bacteria Urine 2+ (None Seen); Hyaline Casts Urine 0-2 /LPF (0-2); RBC Urine 0-2 /HPF (0-2); UACC Culture Trigger YES
[2023-06-17 19:41] VITALS: BP 129/85; PULSE 88; RESP 18; O2SAT 96
[2023-06-17] MEDS: Ketorolac Tromethamine 30 MG/ML VIAL IVPUSH (20:40)
[2023-06-17] MEDS: ondansetron HCL 4 MG/2 ML VIAL IVPUSH (20:41)
[2023-06-17] MEDS: 0.9 % Sodium Chloride 1,000 ML 999 ML IVCONT (20:41)
[2023-06-17] MEDS: HYDROmorphone HCl 1 MG/ML SYRINGE IVPUSH (20:41)
[2023-06-17] MEDS: oxyCODONE HCl Immed Release 5 MG TABLET PO (21:37)
== END 2023-06-17 22:56 | disposition home or self-care (01) ==
PROVIDERS: Physician Assistant; Emergency Provider Student in an Organized Health Care Education/Training Program
DX: N23 Unspecified renal colic (principal); Q61.5 Medullary cystic kidney
CPT/HCPCS: 36415; 76775; 80048; 80076; 81001; 81003; 81025; 83690; 83735; 85025; 87086; 96361; 96374; 96375; 99284; J1170; J1885; J2405

== ENCOUNTER 2023-08-03 20:05 | Emergency (ER) | payer OTHER, SELFPAY ==
--- NOTE | ~2023-08-03 | US_ITS ---
EXAMINATION: US RETROPERITONEAL LIMITED (RENAL ONLY) CLINICAL INFORMATION: Flank pain, history of medullary sponge kidneys. COMPARISON: Ultrasound 06/17/2023. TECHNIQUE: Real-time imaging of the kidneys. FINDINGS: RIGHT KIDNEY: 10.5 x 4.5 x 4.7 cm (SAG x AP x TRV). Again noted increased echogenicity with bright reflectors within the medullary pyramids, in keeping with history of medullary sponge kidney. No renal calculi or hydronephrosis. A 1 x 0.7 x 0.9 cm hypoechoic observation in the lower pole is slightly decreased in size from 1.2 x 1.2 x 1 cm on 06/17/2023. LEFT KIDNEY: 12 x 4.7 x 4.5 cm (SAG x AP x TRV). Similar to the right side, there is increased echogenicity with bright reflectors within the medullary pyramids in keeping with history of medullary sponge kidney. Superimposed within this background, there is suggestion of a few punctate nonobstructive calculi. No focal parenchymal lesions or hydronephrosis. US/US renal BI IMPRESSION: 1. Hyperechogenicity of the renal pyramids in keeping with history of medullary sponge kidney. This background limits evaluation of calculi, however accounting for this limitation, a few nonobstructive calculi are suspected to be present in the left kidney. 2. A 1 cm hypoechoic observation in the lower pole of the right kidney is slightly decreased in size from 06/17/2023; this may represent a cyst, though is not entirely anechoic and posterior through transmission is not confidentially identified. Continued follow-up is recommended to ensure stability.
[2023-08-03 20:10] VITALS: BP 147/87; PULSE 98; RESP 16; TEMP 36.4; O2SAT 98; BMI 39.5
--- NOTE | 2023-08-03 20:11 | ED.ABDPAIN ---
HPI - Abdominal Pain General Chief Complaint: Abdominal Pain Stated Complaint: right flank pain kidney stones Time Seen by Provider: 08/03/23 23:55 Source: patient Mode of arrival: ambulatory Limitations: no limitations History of Present Illness HPI narrative: Patient's history of medullary sponge kidney been to the ER multiple times frequent pain no history of obstructive uropathy patient noticed sharp pain started 2 hours to arrival or less the right flank area took her Toradol without much relief upset with nausea no vomiting patient also noticed a pinkish urine patient took Flomax Zofran Toradol without much response Related Data Previous Rx's Medication Instructions Recorded ketorolac 10 mg tablet 10 mg PO TID PRN pain #14 tabs 04/12/23 tamsulosin 0.4 mg capsule (Flomax) 0.4 mg PO DAILY #14 caps 04/12/23 cefuroxime axetil 250 mg tablet 250 mg PO BID 7 days #14 tabs 06/17/23 oxycodone 5 mg tablet 5 mg PO Q8H PRN severe pain (scale 06/17/23 score 7-10) #6 tabs hydromorphone 2 mg tablet 2 mg PO Q6H PRN pain #14 tabs 08/04/23 (Dilaudid) Allergies Allergy/AdvReac Type Severity Reaction Status Date / Time amoxicillin Allergy Rash Verified 04/12/23 12:42 droperidol Allergy Hallucinati Verified 04/12/23 12:42 ons morphine Allergy Vomiting Verified 04/12/23 12:42 Penicillins [PCN] Allergy Rash Verified 04/12/23 12:42 Review of Systems Review of Systems Yes all other systems are reviewed and are negative PMFSH Past Medical History Medical History Medullary sponge kidney Surgical History H/O lithotripsy Social History Social History Alcohol intake: never Smoked in Last 30 Days: No Use of substances other than those prescribed or required for medical reasons: No Advance Directives: No Advance Directives Information Provided: No Patient : No Physical Exam ED Vital Signs: Vital Signs - 24 hr 08/03/23 20:10 08/04/23 00:05 Temperature 97.6 F 98.7 F Pulse Rate 98 90 Respiratory Rate 16 18 Blood Pressure 147/87 H 140/77 H Pulse Oximetry 98 98 Oxygen Delivery Method Room Air Room Air BMI result Body Mass Index 39.5 Appearance: Alert. Oriented X3. No acute distress. ENT: Pharynx normal. Oral Mucosa moist Neck: Normal inspection. Neck supple. CVS: Normal heart rate and rhythm. Pulses normal. Respiratory: No respiratory distress. Equal air entry bilateral, no wheezing/rales/rhonchi Abdomen: Soft and nontender. Bowel sounds are present, no mass palpable, R CVA tenderness + Skin: Skin warm and dry. Normal skin color. Normal skin turgor. Extremities: No lower extremity edema. No calf tenderness Neuro: Oriented X 3. Course Course Course Narrative: RME: 38-year-old female with past medical history of medullary sponge kidney presenting to the ED complaining of right flank pain x2 hrs. +dysuria & hematuria, denies fever, chills Labs, UA, Renal US ordered Full HPI, ROS and PE to be performed by primary ED provider. Medical Decision Making Medical Decision Making [facility] Narrative: Patient with chronic flank pain with history of mental is labs stable discharge patient home on Dilaudid. Patient ultrasound negative for any obstructive uropathy Differential Diagnosis Differential Diagnoses: The differential diagnosis associated with the presentation includes Kidney stone/model response kidney/UTI Lab Data [facility] Lab Attestation statement: I reviewed the patient's lab results. 08/03/23 20:47 08/03/23 20:47 Labs: Lab Results 08/03/23 08/03/23 Range/Units 20:47 20:48 WBC 12.0 H (4.8-10.8) X10*3/uL RBC 4.75 (4.20-5.50) X10*6/uL Hgb 12.3 (12.0-16.0) g/dl Hct 37.3 (37.0-47.0) % MCV 78.5 L (80.0-98.0) fL MCH 25.9 L (27.0-33.0) pg MCHC 33.0 (31.0-35.0) g/dl RDW 13.9 (11.0-16.0) % Plt Count 217 (160-400) X10*3/uL MPV 9.2 L (9.4-12.3) fL Immature Gran % (Auto) 0.6 H (0.0-0.4) % Neut % (Auto) 66.0 (45-73) % Lymph % (Auto) 25.9 (20-40) % [place] % (Auto) 5.0 (2-11) % Eos % (Auto) 1.9 (0-4) % Baso % (Auto) 0.6 (0-2) % Lymph # (Auto) 3.1 (1.2-4.9) X10*3/uL [place] # (Auto) 0.6 (0.1-1.2) X10*3/uL Eos # (Auto) 0.2 (0.0-0.4) X10*3/uL Baso # (Auto) 0.1 (0.0-0.2) X10*3/uL Abs Immat Gran (auto) 0.07 H (0.00-0.03) X10*3/uL Absolute Neuts (auto) 8.0 (2.0-8.3) x10*3/uL Absolute Nucleated RBC 0.000 (0.0-0.012) X10*3/uL Nucleated RBC % (auto) 0.0 (0.0-0.2) /100WBC Sodium 138 (135-145) mmol/L Potassium 3.0 L (3.3-5.1) mmol/L Chloride 102 (96-108) mmol/L Carbon Dioxide 25 (22-29) mmol/L Anion Gap 14 (12-20) BUN 10 (9-16) mg/dL Creatinine 0.83 (0.5-1.4) mg/dL Estim Creat Clear Calc 114.3 Estimated GFR > 60 Random Glucose 161 H (60-115) mg/dL Calcium 9.4 (8.4-10.2) mg/dL Total Bilirubin 0.2 (0.0-1.0) mg/dL Direct Bilirubin < 0.2 (0.0-0.5) mg/dL AST 22 (5-31) U/L ALT 23 (0-31) U/L Alkaline Phosphatase 77 (39-117) U/L Total Protein 7.9 (6.5-8.0) g/dL Albumin 4.0 (3.5-5.0) g/dL Lipase 35 (8-78) U/L Urine Color Yellow Urine Appearance Cloudy Urine pH 6.0 (5.0-9.0) Ur Specific [place] 1.020 (1.005-1.025) Urine Protein Trace (Neg-Trace) mg/dL Urine Glucose (UA) Negative (Negative) mg/dL Urine Ketones Negative (Negative) mg/dL Urine Blood Large (3+) H (Negative) Urine Nitrite Negative (Negative) Ur Leukocyte Esterase Trace H (Negative) Urine RBC >20 H (0-2) /HPF Urine WBC 6-10 H (0-5) /HPF Ur Squamous Epith Cells 6-10 (0-2) /HPF Urine Bacteria 3+ (None Seen) Hyaline Casts 0-2 (0-2) /LPF Urine Test NEGATIVE (NEGATIVE) Radiology Impression Discussion of test interpretation with radiology: I have reviewed the radiologist's reading. Medications Administered Discontinued Medications Generic Name Dose Route Start Last Admin Trade Name Freq PRN Reason Stop Dose Admin Hydromorphone HCl 2 mg 08/04/23 00:10 08/04/23 00:32 Hydromorphone Hcl 2 Mg Tablet PO 08/04/23 00:11 2 mg ONCE ONE Administration Potassium Chloride 20 meq 08/04/23 00:43 08/04/23 00:55 Potassium Chloride Er 20 Meq Tab.Er.Prt PO 08/04/23 00:44 20 meq ONCE ONE Administration Discharge Plan Discharge Clinical Impression: Medullary sponge kidney Patient Disposition: Home, Self-Care Instructions: Flank Pain (ED) Additional Instructions: Take medication as prescribed by your urologist Doyle for severe pain Follow-up with your urologist Prescriptions: New hydromorphone [Dilaudid] 2 mg tablet 2 mg PO Q6H PRN (Reason: pain) Qty: 14 0RF Rx Instructions: Partial Fill upon patient request. No Action ketorolac 10 mg tablet 10 mg PO TID PRN (Reason: pain) Qty: 14 0RF tamsulosin [Flomax] 0.4 mg capsule 0.4 mg PO DAILY Qty: 14 0RF cefuroxime axetil 250 mg tablet 250 mg PO BID 7 Days Qty: 14 0RF oxycodone 5 mg tablet 5 mg PO Q8H PRN (Reason: severe pain (scale score 7-10)) Qty: 6 0RF Rx Instructions: Partial Fill upon patient request. Interventions: ED Discharge Assessment Last Done: 08/04/23 01:03 Discharge Date/Time: 08/04/23 01:04
[2023-08-03 20:53] LABS: MANUAL DIFF FLAG NO
[2023-08-03 20:56] LABS: Appearance Urine Cloudy; Color Urine Yellow; Glucose Urine UA Negative (Negative); Leukocyte Esterase Urine Trace (Negative); Nitrite Urine Negative (Negative); UMIC TRIGGER UACC YES; Urine Blood Large (3+) (Negative); Urine Ketones Negative (Negative); Urine Protein Trace mg/dL (Neg-Trace)
[2023-08-03 20:56] LABS: Basophils Absolute Auto 0.1 X10*3/uL (0.0-0.2); Basophils Percent Auto 0.6 % (0-2); Eosinophils Absolute Auto 0.2 X10*3/uL (0.0-0.4); Eosinophils Percent Auto 1.9 % (0-4); Hematocrit 37.3 % (37.0-47.0); Hemoglobin 12.3 g/dl (12.0-16.0); Imm Gran Abs Auto 0.07 X10*3/uL (0.00-0.03); Imm Gran Pct Auto 0.6 % (0.0-0.4); Lymphocytes Absolute Auto 3.1 X10*3/uL (1.2-4.9); Lymphocytes Percent Auto 25.9 % (20-40); Mean Corpuscular Hemoglobin 25.9 pg (27.0-33.0); Mean Corpuscular Volume 78.5 fL (80.0-98.0); Mean Platelet Volume 9.2 fL (9.4-12.3); Monocytes Absolute Auto 0.6 X10*3/uL (0.1-1.2); Platelet Count 217 X10*3/uL (160-400); Red Blood Count 4.75 X10*6/uL (4.20-5.50); Red Cell Distribution Width 13.9 % (11.0-16.0)
[2023-08-03 20:57] LABS: UPreg QC Valid YES; Urine Pregnancy NEGATIVE (NEGATIVE)
[2023-08-03 21:06] LABS: Bacteria Urine 3+ (None Seen); Hyaline Casts Urine 0-2 /LPF (0-2); RBC Urine >20 /HPF (0-2); UACC Culture Trigger YES
[2023-08-03 21:14] LABS: Alanine Aminotransferase 23 U/L (0-31); Alkaline Phosphatase 77 U/L (39-117); Anion Gap 14 (12-20); Aspartate Amino Transferase 22 U/L (5-31); Bilirubin Direct < 0.2 mg/dL (0.0-0.5); Bilirubin Total 0.2 mg/dL (0.0-1.0); Blood Urea Nitrogen 10 mg/dL (9-16); Calcium 9.4 mg/dL (8.4-10.2); Carbon Dioxide 25 mmol/L (22-29); Chloride 102 mmol/L (96-108); Creatinine Clr Calc Pharmacy 114.3; Estimated Glomerular Filt Rate > 60; Glucose Random 161 mg/dL (60-115); Lipase 35 U/L (8-78); Sodium 138 mmol/L (135-145); Total Protein 7.9 g/dL (6.5-8.0)
[2023-08-04 00:05] VITALS: BP 140/77; PULSE 90; RESP 18; TEMP 37.1; O2SAT 98
--- NOTE | 2023-08-04 00:07 | PC.NURSE ---
Pt ambulated into room with a steady gait, pt AOx3, Pt reporting 10/10 right sided flank pain tender to palpation, with hot/cold sweats. Pt reports decreased urination with pain when manually expressing urine. Pt denies burning or pain during urination. Pt reports having a hx of kidney stones
[2023-08-04] MEDS: HYDROmorphone HCl 2 MG TABLET PO (00:32)
[2023-08-04] MEDS: Potassium Chloride ER 20 MEQ TAB.ER.PRT PO (00:55)
== END 2023-08-04 01:04 | disposition home or self-care (01) ==
PROVIDERS: Physician Assistant; Emergency Provider Internal Medicine
DX: Q61.5 Medullary cystic kidney (principal); R10.9 Unspecified abdominal pain
CPT/HCPCS: 36415; 76775; 80048; 80076; 81001; 81025; 83690; 85025; 87086; 99284

== ENCOUNTER 2023-12-29 22:58 | Emergency (ER) | payer OTHER, SELFPAY ==
--- NOTE | ~2023-12-29 | CT_ITS ---
EXAMINATION: CT ABDOMEN AND PELVIS WITHOUT CONTRAST CLINICAL INFORMATION: Left flank pain. COMPARISON: None available. TECHNIQUE: Multidetector volumetric imaging was performed from the superior aspect of the liver through the pubic symphysis. Sagittal and coronal reformatted images were obtained on the technologist's workstation. This CT examination was performed using dose optimization techniques as appropriate, variously including the following: *Automated exposure control *Adjustment of mA and/or kV according to patient size (this includes techniques or standardized protocols for targeted exams where dose is matched to indication/reason for exam; i.e. extremities or head) *Use of iterative reconstruction technique DLP: 919 mGy-cm FINDINGS: LUNG BASES: The visualized lung bases are unremarkable. LIVER, GALLBLADDER, AND BILIARY TREE: The liver is normal in size, shape, and attenuation. No focal hepatic lesion or biliary ductal dilatation is present. The gallbladder is unremarkable with no evidence of radiopaque gallstones, gallbladder wall thickening, or obvious pericholecystic inflammatory changes. PANCREAS: Unremarkable. SPLEEN: Unremarkable. ADRENAL GLANDS: Unremarkable. KIDNEYS AND URETERS: The kidneys are normal in size, shape, and attenuation. There are scattered bilateral renal calculi measuring up to 4 mm mid pole left kidney. There is no hydronephrosis. There is a likely subcentimeter cyst mid to upper pole right kidney. BLADDER: Unremarkable. GASTROINTESTINAL TRACT: The small and large bowel are unremarkable. The appendix is unremarkable. ABDOMINAL WALL: No significant hernia is appreciated. LYMPH NODES: Normal. VASCULAR: Unremarkable. PELVIC VISCERA: Unremarkable. OSSEOUS STRUCTURES: Unremarkable. CT/CT abdomen pelvis wo IV con IMPRESSION: Bilateral nonobstructing renal calculi. No hydronephrosis. No acute intra-abdominal process identified. Fleischner guidelines were followed.
[2023-12-29 23:11] VITALS: BP 133/74; PULSE 93; RESP 18; TEMP 37.2; O2SAT 97; BMI 36.6
[2023-12-29 23:39] LABS: Basophils Absolute Auto 0.1 X10*3/uL (0.0-0.2); Basophils Percent Auto 0.8 % (0-2); Eosinophils Absolute Auto 0.2 X10*3/uL (0.0-0.4); Eosinophils Percent Auto 1.6 % (0-4); Hematocrit 38.7 % (37.0-47.0); Hemoglobin 12.7 g/dl (12.0-16.0); Imm Gran Abs Auto 0.04 X10*3/uL (0.00-0.03); Imm Gran Pct Auto 0.4 % (0.0-0.4); Lymphocytes Absolute Auto 2.8 X10*3/uL (1.2-4.9); Lymphocytes Percent Auto 24.8 % (20-40); MANUAL DIFF FLAG NO; Mean Corpuscular HGB Conc 32.8 g/dl (31.0-35.0); Mean Corpuscular Hemoglobin 24.7 pg (27.0-33.0); Mean Corpuscular Volume 75.1 fL (80.0-98.0); Mean Platelet Volume 9.1 fL (9.4-12.3); Monocytes Absolute Auto 0.6 X10*3/uL (0.1-1.2); Neutrophils Absolute Auto 7.7 x10*3/uL (2.0-8.3); Neutrophils Percent Auto 67.4 % (45-73); Platelet Count 256 X10*3/uL (160-400); Red Blood Count 5.15 X10*6/uL (4.20-5.50); White Blood Count 11.4 X10*3/uL (4.8-10.8)
[2023-12-29 23:41] LABS: Appearance Urine Clear; Color Urine Yellow; Glucose Urine UA Negative (Negative); Leukocyte Esterase Urine Negative (Negative); Nitrite Urine Negative (Negative); PH 6.5 (5.0-9.0); UMIC TRIGGER UACC YES; Urine Blood Large (3+) (Negative); Urine Ketones Negative (Negative); Urine Protein Negative (Neg-Trace)
[2023-12-29 23:45] LABS: UPreg QC Valid YES; Urine Pregnancy NEGATIVE (NEGATIVE)
[2023-12-29 23:46] LABS: Bacteria Urine 2+ (None Seen); Hyaline Casts Urine 0-2 /LPF (0-2); RBC Urine >20 /HPF (0-2); UACC Culture Trigger YES
[2023-12-30 00:01] LABS: Alanine Aminotransferase 23 U/L (0-31); Albumin Level 4.1 g/dL (3.5-5.0); Alkaline Phosphatase 79 U/L (39-117); Anion Gap 13 (12-20); Aspartate Amino Transferase 24 U/L (5-31); Bilirubin Total 0.2 mg/dL (0.0-1.0); Blood Urea Nitrogen 11 mg/dL (9-16); Calcium 9.4 mg/dL (8.4-10.2); Carbon Dioxide 28 mmol/L (22-29); Chloride 103 mmol/L (96-108); Creatinine Clr Calc Pharmacy 95.7; Estimated Glomerular Filt Rate > 60; Glucose Random 145 mg/dL (60-115); Sodium 141 mmol/L (135-145)
[2023-12-30 00:08] LABS: Potassium 2.8 mmol/L (3.3-5.1)
[2023-12-30] MEDS: HYDROmorphone HCl 1 MG/ML SYRINGE IVPUSH ×2 (01:06→02:20)
[2023-12-30] MEDS: Potassium Chloride/H20 10 MEQ/100 ML PIGGYBACK 100 MEQ IV ×2 (01:06→02:20)
[2023-12-30] MEDS: ondansetron HCL 4 MG/2 ML VIAL IVPUSH (01:06)
[2023-12-30] MEDS: Potassium Chloride Packet 20 MEQ PACKET 40 MEQ PO (01:07)
[2023-12-30] MEDS: 0.9 % Sodium Chloride 1,000 ML 999 ML IV (01:08)
--- NOTE | 2023-12-30 01:49 | ED.ABDPAIN ---
HPI - Abdominal Pain General Chief Complaint: Abdominal Pain Stated Complaint: Flank pain Time Seen by Provider: 12/30/23 00:34 Source: patient and old records reviewed Mode of arrival: ambulatory Limitations: no limitations History of Present Illness HPI narrative: 38 yo female with PMH of medullary sponge kidney here with c/o L flank pain nausea and not feeling well with chills. Took normal renal colic regimen with little relief. MD elicited complaint: flank pain Pertinent past history: kidney stones Onset (ago): day(s) (yesterday AM ) Pain Consistency: constant Location: L flank Severity: moderate Quality: stabbing Radiation: L flank Migration to: no migration Exacerbating factors: nothing Relieving factors: nothing Context: history of similar episodes Associated symptoms: nausea Related Data Previous Rx's Medication Instructions Recorded ketorolac 10 mg tablet 10 mg PO TID PRN pain #14 tabs 04/12/23 tamsulosin 0.4 mg capsule (Flomax) 0.4 mg PO DAILY #14 caps 04/12/23 cefuroxime axetil 250 mg tablet 250 mg PO BID 7 days #14 tabs 06/17/23 oxycodone 5 mg tablet 5 mg PO Q8H PRN severe pain (scale 06/17/23 score 7-10) #6 tabs hydromorphone 2 mg tablet 2 mg PO Q6H PRN pain #14 tabs 08/04/23 (Dilaudid) hydromorphone 2 mg tablet 2 mg PO Q6H PRN pain #12 tabs 12/30/23 (Dilaudid) nitrofurantoin 100 mg PO BID 7 days #14 caps 12/30/23 monohydrate/macrocrystals 100 mg capsule (Macrobid) ondansetron 4 mg disintegrating 4 mg PO Q8H PRN nausea and 12/30/23 tablet vomiting #20 tabs Allergies Allergy/AdvReac Type Severity Reaction Status Date / Time amoxicillin Allergy Rash Verified 12/29/23 23:11 droperidol Allergy Hallucinati Verified 12/29/23 23:11 ons morphine Allergy Vomiting Verified 12/29/23 23:11 Penicillins [PCN] Allergy Rash Verified 12/29/23 23:11 Review of Systems Review of Systems Constitutional : No Weight loss, No Fever, pos Chills ENT/Mouth : No sore throat, No Rhinorrhea Eyes: No Swelling, No Redness Cardiovascular : No Chest Pain, No SOB, NoEdema Respiratory : No Cough, No Sputum, No Wheezing Gastrointestinal : Positive Nausea, Positive Vomiting, no Diarrhea, positive abdominal Pain, No Hematochezia, No Melena Genitourinary : No Dysuria, No Urinary Frequency, No Hematuria, No Urgency Musculoskeletal : No joint pain, No Myalgias, No Joint Swelling Skin : No Skin Lesions, No rash Neuro : No Weakness, No Numbness, No Dizziness, No Headache Psych : No Anxiety/Panic, No Depression All other systems reviewed and are negative. [facility] Past Medical History Attestation statement: The following information was validated with the patient. Source: old records reviewed Medical History Medullary sponge kidney Surgical History H/O lithotripsy Social History Social History Alcohol intake: never Advance Directives: No Advance Directives Information Provided: No Physical Exam ED Vital Signs: Vital Signs - 24 hr 12/29/23 23:11 12/30/23 03:50 Temperature 99.0 F 98.2 F Pulse Rate 93 64 Respiratory Rate 18 12 Blood Pressure 133/74 142/72 H Pulse Oximetry 97 97 Oxygen Delivery Method Room Air Room Air BMI result Body Mass Index 36.6 Appearance: Alert. Oriented X3. No acute distress. Eyes: Pupils equal, round and reactive to light. ENT: Pharynx normal. Neck: Normal inspection. Neck supple. CVS: Normal heart rate and rhythm. Pulses normal. Respiratory: No respiratory distress. Breath sounds normal. Abdomen: Soft and nontender. Back: mild L CVA ttp Skin: Skin warm and dry. Normal skin color. Normal skin turgor. Extremities: No lower extremity edema. No calf ttp Neuro: Oriented X 3. No motor deficit. No sensory deficit. Course Course Course Narrative: improvement in pain after IV dilaudid Medical Decision Making Medical Decision Making MDM Narrative: 38 yo female with PMH of medullary sponge kidney here with c/o nausea and L flank pain at this time suspect kidney stone will obtain basic labs, UA, CT scan for obstruction will replete K and start on IVF as well as IV pain medications UA is weakly positive. Differential Diagnosis Differential Diagnoses: The differential diagnosis associated with the presentation includes back pain, renal colic, UTI Admission/Observation Consideration of admission/observation: Escalation of care including admission/observation considered no obstructing stones K repleted stable for DB Lab Data [facility] Lab Attestation statement: I reviewed the patient's lab results. K likely due to HCTZ use 12/29/23 23:35 12/29/23 23:35 Labs: Lab Results 12/29/23 Range/Units 23:35 WBC 11.4 H (4.8-10.8) X10*3/uL RBC 5.15 (4.20-5.50) X10*6/uL Hgb 12.7 (12.0-16.0) g/dl Hct 38.7 (37.0-47.0) % MCV 75.1 L (80.0-98.0) fL MCH 24.7 L (27.0-33.0) pg MCHC 32.8 (31.0-35.0) g/dl RDW 15.0 (11.0-16.0) % Plt Count 256 (160-400) X10*3/uL MPV 9.1 L (9.4-12.3) fL Immature Gran % (Auto) 0.4 (0.0-0.4) % Neut % (Auto) 67.4 (45-73) % Lymph % (Auto) 24.8 (20-40) % Bureau % (Auto) 5.0 (2-11) % Eos % (Auto) 1.6 (0-4) % Baso % (Auto) 0.8 (0-2) % Lymph # (Auto) 2.8 (1.2-4.9) X10*3/uL Bureau # (Auto) 0.6 (0.1-1.2) X10*3/uL Eos # (Auto) 0.2 (0.0-0.4) X10*3/uL Baso # (Auto) 0.1 (0.0-0.2) X10*3/uL Abs Immat Gran (auto) 0.04 H (0.00-0.03) X10*3/uL Absolute Neuts (auto) 7.7 (2.0-8.3) x10*3/uL Absolute Nucleated RBC 0.000 (0.0-0.012) X10*3/uL Nucleated RBC % (auto) 0.0 (0.0-0.2) /100WBC Sodium 141 (135-145) mmol/L Potassium 2.8 L* (3.3-5.1) mmol/L Chloride 103 (96-108) mmol/L Carbon Dioxide 28 (22-29) mmol/L Anion Gap 13 (12-20) BUN 11 (9-16) mg/dL Creatinine 0.95 (0.5-1.4) mg/dL Estim Creat Clear Calc 95.7 Estimated GFR > 60 Random Glucose 145 H (60-115) mg/dL Calcium 9.4 (8.4-10.2) mg/dL Total Bilirubin 0.2 (0.0-1.0) mg/dL AST 24 (5-31) U/L ALT 23 (0-31) U/L Alkaline Phosphatase 79 (39-117) U/L Total Protein 8.0 (6.5-8.0) g/dL Albumin 4.1 (3.5-5.0) g/dL Urine Color Yellow Urine Appearance Clear Urine pH 6.5 (5.0-9.0) Ur Specific [place] 1.020 (1.005-1.025) Urine Protein Negative (Neg-Trace) mg/dL Urine Glucose (UA) Negative (Negative) mg/dL Urine Ketones Negative (Negative) mg/dL Urine Blood Large (3+) H (Negative) Urine Nitrite Negative (Negative) Ur Leukocyte Esterase Negative (Negative) Urine RBC >20 H (0-2) /HPF Urine WBC 6-10 H (0-5) /HPF Ur Squamous Epith Cells 3-5 (0-2) /HPF Urine Bacteria 2+ (None Seen) Hyaline Casts 0-2 (0-2) /LPF Urine Test NEGATIVE (NEGATIVE) Independent Interpretation I performed an independent interpretation of an: CT Scan (no obstruction) Radiology Impression Discussion of test interpretation with radiology: I have reviewed the radiologist's reading. External Record Review External record reviewed: Inpatient record Prescription Management I considered prescription management with: Pain Medication, Antibiotic and Other Medications Administered Discontinued Medications Generic Name Dose Route Start Last Admin Trade Name Freq PRN Reason Stop Dose Admin Hydromorphone HCl 1 mg 12/30/23 00:35 12/30/23 01:06 Hydromorphone Hcl 1 Mg/Ml Syringe IVPUSH 12/30/23 00:36 1 mg ONCE ONE Administration Protocol Hydromorphone HCl 1 mg 12/30/23 02:02 12/30/23 02:20 Hydromorphone Hcl 1 Mg/Ml Syringe IVPUSH 12/30/23 02:03 1 mg ONCE ONE Administration Protocol Potassium Chloride 10 meq in 100 mls @ 100 mls/hr 12/30/23 00:15 12/30/23 03:41 Potassium Chloride/H20 IV 12/30/23 02:14 Infused Q1H HARRY Infusion Sodium Chloride 1,000 mls @ 999 mls/hr 12/30/23 00:45 12/30/23 03:40 Ns IV 12/30/23 01:45 Infused .Q1H1M HARRY Infusion Nitrofurantoin Macrocrystals 100 mg 12/30/23 03:20 12/30/23 03:48 Nitrofurantoin Monohyd/M-Cryst 100 Mg Capsule PO 12/30/23 03:21 100 mg ONCE ONE Administration Ondansetron HCl 4 mg 12/30/23 00:35 12/30/23 01:06 Ondansetron Hcl 4 Mg/2 Ml Vial IVPUSH 12/30/23 00:36 4 mg ONCE ONE Administration Potassium Chloride 40 meq 12/30/23 00:10 12/30/23 01:07 Potassium Chloride Packet 20 Meq Packet PO 12/30/23 00:11 40 meq ONCE ONE Administration Critical Care Time Critical Care Time Critical Care Time: Yes Total Critical Care Time: 45 Attestation: repeat IV dilaudid with improvement, IV potassium repletion, review of records I attest to this time spent taking care of the patient Discharge Plan Discharge Clinical Impression: Acute hypokalemia, Acute UTI, Acute left flank pain Patient Disposition: Home, Self-Care Instructions: Urinary Tract Infection in Women (ED), Hypokalemia (ED), Flank Pain (ED) Additional Instructions: return for fevers, vomiting, inability to eat or drink or any other concerns. follow up with your urologist. KIDNEYS AND URETERS: The kidneys are normal in size, shape, and attenuation. There are scattered bilateral renal calculi measuring up to 4 mm mid pole left kidney. There is no hydronephrosis. There is a likely subcentimeter cyst mid to upper pole right kidney. BLADDER: Unremarkable. GASTROINTESTINAL TRACT: The small and large bowel are unremarkable. The appendix is unremarkable. ABDOMINAL WALL: No significant hernia is appreciated. LYMPH NODES: Normal. VASCULAR: Unremarkable. PELVIC VISCERA: Unremarkable. OSSEOUS STRUCTURES: Unremarkable. CT/CT abdomen pelvis wo IV con IMPRESSION: Bilateral nonobstructing renal calculi. No hydronephrosis. No acute intra-abdominal process identified. Prescriptions: New ondansetron 4 mg tablet,disintegrating 4 mg PO Q8H PRN (Reason: nausea and vomiting) Qty: 20 0RF nitrofurantoin monohyd/m-cryst [Macrobid] 100 mg capsule 100 mg PO BID 7 Days Qty: 14 0RF Rx Instructions: must administer with a meal/food hydromorphone [Dilaudid] 2 mg tablet 2 mg PO Q6H PRN (Reason: pain) Qty: 12 0RF Rx Instructions: Partial Fill upon patient request. No Action ketorolac 10 mg tablet 10 mg PO TID PRN (Reason: pain) Qty: 14 0RF tamsulosin [Flomax] 0.4 mg capsule 0.4 mg PO DAILY Qty: 14 0RF cefuroxime axetil 250 mg tablet 250 mg PO BID 7 Days Qty: 14 0RF oxycodone 5 mg tablet 5 mg PO Q8H PRN (Reason: severe pain (scale score 7-10)) Qty: 6 0RF Rx Instructions: Partial Fill upon patient request. hydromorphone [Dilaudid] 2 mg tablet 2 mg PO Q6H PRN (Reason: pain) Qty: 14 0RF Rx Instructions: Partial Fill upon patient request. Interventions: ED Discharge Assessment Last Done: 12/30/23 03:50 Discharge Date/Time: 12/30/23 03:50
[2023-12-30] MEDS: Nitrofurantoin Monohyd/M-Cryst 100 MG CAPSULE PO (03:48)
[2023-12-30 03:50] VITALS: BP 142/72; PULSE 64; RESP 12; TEMP 36.8; O2SAT 97
== END 2023-12-30 03:50 | disposition home or self-care (01) ==
PROVIDERS: Emergency Provider Emergency Medicine
DX: R10.9 Unspecified abdominal pain (principal); N39.0 Urinary tract infection, site not specified; E87.6 Hypokalemia; Q61.5 Medullary cystic kidney; Z87.442 Personal history of urinary calculi
CPT/HCPCS: 36415; 74176; 80053; 81001; 81025; 85025; 87086; 96365; 96366; 96374; 96375; 96376; 99283; 99284; J1170; J2405; J3480

== ENCOUNTER 2024-01-31 22:58 | Emergency (ER) | payer OTHER, SELFPAY ==
--- NOTE | ~2024-01-31 | CT_ITS ---
EXAMINATION: CT ABDOMEN AND PELVIS WITHOUT CONTRAST CLINICAL INFORMATION: Left flank pain, history of kidney stones COMPARISON: 12/30/2023 TECHNIQUE: Multidetector volumetric imaging was performed from the superior aspect of the liver through the pubic symphysis. Sagittal and coronal reformatted images were obtained on the technologist's workstation. This CT examination was performed using dose optimization techniques as appropriate, variously including the following: *Automated exposure control *Adjustment of mA and/or kV according to patient size (this includes techniques or standardized protocols for targeted exams where dose is matched to indication/reason for exam; i.e. extremities or head) *Use of iterative reconstruction technique DLP: 917 mGy-cm FINDINGS: LUNG BASES: The visualized lung bases are unremarkable. LIVER, GALLBLADDER, AND BILIARY TREE: The liver is normal in size, shape, and attenuation. No focal hepatic lesion or biliary ductal dilatation is identified on this noncontrast exam. The gallbladder is unremarkable with no evidence of radiopaque gallstones, gallbladder wall thickening, or obvious pericholecystic inflammatory changes. PANCREAS: Unremarkable. SPLEEN: Mildly enlarged, measuring 13.5 cm in the axial plane. ADRENAL GLANDS: Unremarkable. KIDNEYS AND URETERS: Somewhat lobulated contour of the kidneys. No hydronephrosis bilaterally. There is a punctate calcification along the course of the mid to distal left ureter on image 600/849. Few scattered calculi in each kidney measuring up to 5 mm on the left. Small hypodensity in the upper right kidney posteriorly favors a cyst; no follow-up recommended. BLADDER: Mild mural prominence, which may be due to underdistention. GASTROINTESTINAL TRACT: No evidence of bowel obstruction or significant wall thickening. The appendix is unremarkable. No free fluid or free air is seen. ABDOMINAL WALL: No significant hernia is appreciated. LYMPH NODES: No lymphadenopathy is seen. There is mild stranding in the central abdominal mesentery. VASCULAR: Unremarkable. PELVIC VISCERA: Unremarkable. OSSEOUS STRUCTURES: Unremarkable. CT/CT abdomen pelvis wo IV con IMPRESSION: 1. Although there is no hydronephrosis, there is a subtle punctate calcification along the course of the mid to distal left ureter, which may represent a tiny ureteral calculus in the setting of left flank pain. 2. Few scattered bilateral renal calculi. 3. Mild splenomegaly. 4. Mild stranding in the central abdominal mesentery, which can be seen with sclerosing mesenteritis.
[2024-01-31 23:24] VITALS: BP 128/80; PULSE 90; RESP 20; TEMP 36.1; O2SAT 99; BMI 36.6
--- NOTE | 2024-01-31 23:46 | MHC.EDTECH ---
patient blood drawn and urine sample collected and sent to lab .
[2024-01-31 23:49] LABS: MANUAL DIFF FLAG NO
[2024-01-31 23:50] LABS: Basophils Absolute Auto 0.1 X10*3/uL (0.0-0.2); Basophils Percent Auto 0.6 % (0-2); Eosinophils Absolute Auto 0.3 X10*3/uL (0.0-0.4); Eosinophils Percent Auto 2.5 % (0-4); Hematocrit 38.4 % (37.0-47.0); Hemoglobin 12.3 g/dl (12.0-16.0); Imm Gran Abs Auto 0.03 X10*3/uL (0.00-0.03); Imm Gran Pct Auto 0.3 % (0.0-0.4); Lymphocytes Absolute Auto 3.3 X10*3/uL (1.2-4.9); Mean Corpuscular Hemoglobin 24.3 pg (27.0-33.0); Mean Corpuscular Volume 75.7 fL (80.0-98.0); Monocytes Absolute Auto 0.7 X10*3/uL (0.1-1.2); Monocytes Percent Auto 5.6 % (2-11); Neutrophils Absolute Auto 7.4 x10*3/uL (2.0-8.3); Platelet Count 226 X10*3/uL (160-400); Red Blood Count 5.07 X10*6/uL (4.20-5.50); Red Cell Distribution Width 14.5 % (11.0-16.0); White Blood Count 11.8 X10*3/uL (4.8-10.8)
[2024-01-31 23:52] LABS: Appearance Urine Cloudy; Color Urine Yellow; Glucose Urine UA Negative (Negative); Leukocyte Esterase Urine Negative (Negative); Nitrite Urine Negative (Negative); UMIC TRIGGER UACC YES; Urine Blood Large (3+) (Negative); Urine Ketones Negative (Negative); Urine Protein Negative (Neg-Trace)
[2024-01-31 23:53] LABS: UPreg QC Valid YES; Urine Pregnancy NEGATIVE (NEGATIVE)
[2024-01-31 23:55] LABS: Bacteria Urine Trace (None Seen); Hyaline Casts Urine 0-2 /LPF (0-2); RBC Urine >20 /HPF (0-2); WBC Urine 0-5 /HPF (0-5)
[2024-02-01 00:06] LABS: Alanine Aminotransferase 19 U/L (0-31); Albumin Level 3.8 g/dL (3.5-5.0); Alkaline Phosphatase 78 U/L (39-117); Anion Gap 11 (12-20); Aspartate Amino Transferase 19 U/L (5-31); Bilirubin Total 0.2 mg/dL (0.0-1.0); Blood Urea Nitrogen 11 mg/dL (9-16); Calcium 9.1 mg/dL (8.4-10.2); Carbon Dioxide 27 mmol/L (22-29); Chloride 102 mmol/L (96-108); Creatinine Clr Calc Pharmacy 116.6; Estimated Glomerular Filt Rate > 60; Glucose Random 126 mg/dL (60-115); Lipase 50 U/L (8-78); Potassium 3.1 mmol/L (3.3-5.1); Sodium 137 mmol/L (135-145); Total Protein 7.4 g/dL (6.5-8.0)
[2024-02-01 02:03] VITALS: BP 149/94; PULSE 83; RESP 18; TEMP 37.1; O2SAT 97
--- NOTE | 2024-02-01 02:48 | ED_ITS ---
HPI - Abdominal Pain General Chief Complaint: Abdominal Pain Stated Complaint: pt states left side kidney stone pain Time Seen by Provider: 02/01/24 02:15 Source: patient Mode of arrival: ambulatory Limitations: no limitations History of Present Illness HPI narrative: 38-year-old female history of kidney stone presented with left flank pain radiates down to the left groin patient had similar pain in the past known history of kidney stones, required lithotripsy in the past x1 otherwise usually pass it on her own., no dysuria, no frequency urination, no nausea, vomiting, no vaginal bleed or discharge. Never had intra-abdominal surgery in the past. Related Data Previous Rx's ?Medication ?Instructions ?Recorded ketorolac 10 mg tablet 10 mg PO TID PRN pain #14 tabs 04/12/23 tamsulosin 0.4 mg capsule (Flomax) 0.4 mg PO DAILY #14 caps 04/12/23 cefuroxime axetil 250 mg tablet 250 mg PO BID 7 days #14 tabs 06/17/23 oxycodone 5 mg tablet 5 mg PO Q8H PRN severe pain (scale 06/17/23 score 7-10) #6 tabs hydromorphone 2 mg tablet 2 mg PO Q6H PRN pain #14 tabs 08/04/23 (Dilaudid) hydromorphone 2 mg tablet 2 mg PO Q6H PRN pain #12 tabs 12/30/23 (Dilaudid) nitrofurantoin 100 mg PO BID 7 days #14 caps 12/30/23 monohydrate/macrocrystals 100 mg capsule (Macrobid) ondansetron 4 mg disintegrating 4 mg PO Q8H PRN nausea and 12/30/23 tablet vomiting #20 tabs ondansetron HCl 4 mg tablet 4 mg PO BEDTIME PRN nausea and 02/01/24 vomiting 4 days #7 tabs oxycodone 5 mg tablet 5 mg PO BID PRN pain (scale score 02/01/24 7-10) #10 tabs Allergies Allergy/AdvReac Type Severity Reaction Status Date / Time amoxicillin Allergy Rash Verified 01/31/24 23:27 droperidol Allergy Hallucinati Verified 01/31/24 23:27 ons morphine Allergy Vomiting Verified 01/31/24 23:27 Penicillins [PCN] Allergy Rash Verified 01/31/24 23:27 Review of Systems Review of Systems All other systems are reviewed and are negative Constitutional: Reports as per HPI and Reports no additional constitutional complaints Eyes: Reports as per HPI and Reports no additional eye complaints Reports system reviewed and no additional complaints, except as documented Cardiovascular: Reports as per HPI and Reports no additional cardiovascular complaints Respiratory: Reports as per HPI and Reports no additional respiratory complaints Gastrointestinal: Reports as per HPI and Reports no additional gastrointestinal complaints Genitourinary: Reports no additional female genitourinary complaints Musculoskeletal: Reports no additional musculoskeletal complaints Skin/Breast: Reports system reviewed and no additional complaints, except as docu Psychiatric: Reports no additional psychiatric complaints Endocrine: Reports no additional endocrine complaints Hematologic/Lymphatic: Reports no additional hematologic/lymphatic complaints Allergic/Immunologic: Reports no additional allergic/immunologic complaints Reports system reviewed and no additional complaints, except as documented and Reports Abnormal speech present [facility] Past Medical History Medical History Medullary sponge kidney Surgical History H/O lithotripsy Social History Social History Alcohol intake: never Advance Directives: No Advance Directives Information Provided: Yes Physical Exam ED Vital Signs: Vital Signs - 24 hr 01/31/24 23:24 02/01/24 02:03 02/01/24 03:33 Temperature 97.0 F 98.8 F 98.5 F Pulse Rate 90 83 79 Respiratory Rate 20 18 17 Blood Pressure 128/80 149/94 H 131/87 Pulse Oximetry 99 97 99 Oxygen Delivery Method Room Air Room Air Room Air BMI result Body Mass Index 36.6 Vital signs have been reviewed and appear to be correct. Blood pressure elevated. Heart rate normal. Respiratory rate normal. Temperature normal. Oxygen saturation normal. Appearance: Alert. Oriented X3. No acute distress. Head: Normal external exam. Normocephalic. Atraumatic. No Villarreal signs noted. No raccoon eyes noted Eyes: PERRLA. EOMI. Conjunctiva and sclera normal. Eyelids normal. ENT: TM's Normal. Pharynx normal. Uvula midline. Moist mucous membranes. No trismus noted. No drooling noted. No muffled voice noted. Neck: Normal inspection. Neck supple. FROM. No adenopathy. Thyroid Normal. No meningeal signs. No neck mass noted. CVS: Normal heart rate and rhythm. Heart sound normal. No murmurs noted. Pulses normal throughout. Respiratory: No respiratory distress. Painless inspiration. Breath sounds normal. No wheezes/rales/rhonchi noted. Chest nontender. No accessory muscle usage noted or decreased air movement noted. Abdomen: Soft and nontender. Bowel sounds normal in all 4 quadrants. No distention noted. No organomegaly noted. No visible injury noted. Back: L CVA tenderness. Full range of motion noted. Skin: Skin warm and dry. Normal skin color. Normal skin turgor. No rashes/lesions/lacerations noted. Extremities: No lower extremity edema. Extremities exhibit normal range of motion. Extremities nontender. Neuro: Oriented X 3. Cranial nerve exam: II-XII are grossly intact No motor deficit. No sensory deficit. Reflexes normal. Course Reevaluation(s) Reevaluation #1: Left flank pain due to that ureteric stone, patient feels better with Dilaudid and Toradol with Zofran. Will discharge to follow-up with urologist on oxycodone, Zofran prescription. Time: 04:22 Medical Decision Making Differential Diagnosis Differential Diagnoses: The differential diagnosis associated with the presentation includes (Acute pancreatitis, colitis, appendicitis, pyelonephritis, UTI, kidney stone, electrolyte derangement, anemia.) Admission/Observation Consideration of admission/observation: Escalation of care including admission/observation considered Lab Data MDM Lab Attestation statement: I reviewed the patient's lab results. 01/31/24 23:44 01/31/24 23:44 Labs: Lab Results 01/31/24 Range/Units 23:44 WBC 11.8 H (4.8-10.8) X10*3/uL RBC 5.07 (4.20-5.50) X10*6/uL Hgb 12.3 (12.0-16.0) g/dl Hct 38.4 (37.0-47.0) % MCV 75.7 L (80.0-98.0) fL MCH 24.3 L (27.0-33.0) pg MCHC 32.0 (31.0-35.0) g/dl RDW 14.5 (11.0-16.0) % Plt Count 226 (160-400) X10*3/uL MPV 9.0 L (9.4-12.3) fL Immature Gran % (Auto) 0.3 (0.0-0.4) % Neut % (Auto) 63.0 (45-73) % Lymph % (Auto) 28.0 (20-40) % [place] % (Auto) 5.6 (2-11) % Eos % (Auto) 2.5 (0-4) % Baso % (Auto) 0.6 (0-2) % Lymph # (Auto) 3.3 (1.2-4.9) X10*3/uL [place] # (Auto) 0.7 (0.1-1.2) X10*3/uL Eos # (Auto) 0.3 (0.0-0.4) X10*3/uL Baso # (Auto) 0.1 (0.0-0.2) X10*3/uL Abs Immat Gran (auto) 0.03 (0.00-0.03) X10*3/uL Absolute Neuts (auto) 7.4 (2.0-8.3) x10*3/uL Absolute Nucleated RBC 0.000 (0.0-0.012) X10*3/uL Nucleated RBC % (auto) 0.0 (0.0-0.2) /100WBC Sodium 137 (135-145) mmol/L Potassium 3.1 L (3.3-5.1) mmol/L Chloride 102 (96-108) mmol/L Carbon Dioxide 27 (22-29) mmol/L Anion Gap 11 L (12-20) BUN 11 (9-16) mg/dL Creatinine 0.78 (0.5-1.4) mg/dL Estim Creat Clear Calc 116.6 Estimated GFR > 60 Random Glucose 126 H (60-115) mg/dL Calcium 9.1 (8.4-10.2) mg/dL Total Bilirubin 0.2 (0.0-1.0) mg/dL AST 19 (5-31) U/L ALT 19 (0-31) U/L Alkaline Phosphatase 78 (39-117) U/L Total Protein 7.4 (6.5-8.0) g/dL Albumin 3.8 (3.5-5.0) g/dL Lipase 50 (8-78) U/L Urine Color Yellow Urine Appearance Cloudy Urine pH 7.0 (5.0-9.0) Ur Specific [place] 1.020 (1.005-1.025) Urine Protein Negative (Neg-Trace) mg/dL Urine Glucose (UA) Negative (Negative) mg/dL Urine Ketones Negative (Negative) mg/dL Urine Blood Large (3+) H (Negative) Urine Nitrite Negative (Negative) Ur Leukocyte Esterase Negative (Negative) Urine RBC >20 H (0-2) /HPF Urine WBC 0-5 (0-5) /HPF Ur Squamous Epith Cells 11-20 (0-2) /HPF Urine Bacteria Trace (None Seen) Hyaline Casts 0-2 (0-2) /LPF Urine Test NEGATIVE (NEGATIVE) Independent Interpretation I performed an independent interpretation of an: CT Scan (Abdomen and pelvis:1. Although there is no hydronephrosis, there is a subtle punctate calcification along the course of the mid to distal left ureter, which may represent a tiny ureteral calculus in the setting of left flank pain. 2. Few scattered bilateral renal calculi. 3. Mild splenomegaly. 4) Radiology Impression Discussion of test interpretation with radiology: I have reviewed the radiologist's reading. Medications Administered Discontinued Medications Generic Name Dose Route Start Last Admin Trade Name Freq PRN Reason Stop Dose Admin Hydromorphone HCl 0.5 mg 02/01/24 02:47 02/01/24 03:41 Hydromorphone Hcl 0.5 Mg/0.5 Ml Syringe IVPUSH 02/01/24 02:48 0.5 mg ONCE ONE Administration Protocol Ketorolac Tromethamine 30 mg 02/01/24 02:47 02/01/24 03:40 Ketorolac Tromethamine 30 Mg/Ml Vial IVPUSH 02/01/24 02:48 30 mg ONCE ONE Administration Discharge Plan Discharge Clinical Impression: Calculus of left ureter Patient Disposition: Home, Self-Care Instructions: Ureteral Stones (ED) Prescriptions: New oxycodone 5 mg tablet 5 mg PO BID PRN (Reason: pain (scale score 7-10)) Qty: 10 0RF Rx Instructions: Partial Fill upon patient request. ondansetron HCl 4 mg tablet 4 mg PO BEDTIME PRN (Reason: nausea and vomiting) 4 Days Qty: 7 0RF No Action ketorolac 10 mg tablet 10 mg PO TID PRN (Reason: pain) Qty: 14 0RF tamsulosin [Flomax] 0.4 mg capsule 0.4 mg PO DAILY Qty: 14 0RF cefuroxime axetil 250 mg tablet 250 mg PO BID 7 Days Qty: 14 0RF oxycodone 5 mg tablet 5 mg PO Q8H PRN (Reason: severe pain (scale score 7-10)) Qty: 6 0RF Rx Instructions: Partial Fill upon patient request. hydromorphone [Dilaudid] 2 mg tablet 2 mg PO Q6H PRN (Reason: pain) Qty: 14 0RF Rx Instructions: Partial Fill upon patient request. ondansetron 4 mg tablet,disintegrating 4 mg PO Q8H PRN (Reason: nausea and vomiting) Qty: 20 0RF nitrofurantoin monohyd/m-cryst [Macrobid] 100 mg capsule 100 mg PO BID 7 Days Qty: 14 0RF Rx Instructions: must administer with a meal/food hydromorphone [Dilaudid] 2 mg tablet 2 mg PO Q6H PRN (Reason: pain) Qty: 12 0RF Rx Instructions: Partial Fill upon patient request. Referrals: Jordan Dexter MD [Physician] - Print Language: Maltese
[2024-02-01 03:33] VITALS: BP 131/87; PULSE 79; RESP 17; TEMP 36.9; O2SAT 99
[2024-02-01] MEDS: Ketorolac Tromethamine 30 MG/ML VIAL IVPUSH (03:40)
[2024-02-01] MEDS: HYDROmorphone HCl 0.5 MG/0.5 ML SYRINGE IVPUSH ×2 (03:41→04:55)
[2024-02-01] MEDS: 0.9 % Sodium Chloride 1,000 ML 999 ML IV (04:30)
[2024-02-01] MEDS: ondansetron HCL 4 MG/2 ML VIAL IVPUSH (04:30)
[2024-02-01 05:57] VITALS: BP 127/84; PULSE 75; RESP 18; TEMP 36.2; O2SAT 99
== END 2024-02-01 05:58 | disposition home or self-care (01) ==
PROVIDERS: Emergency Provider Emergency Medicine
DX: N20.1 Calculus of ureter (principal); Q61.5 Medullary cystic kidney
CPT/HCPCS: 36415; 74176; 80053; 81001; 81025; 83690; 85025; 96374; 96375; 99284; J1170; J1885; J2405

== ENCOUNTER 2024-02-11 03:12 | Emergency (ER) | payer OTHER, SELFPAY ==
[2024-02-11 03:16] VITALS: BP 130/78; PULSE 87; RESP 16; TEMP 36.6; O2SAT 100; BMI 37.9
[2024-02-11 03:32] LABS: MANUAL DIFF FLAG NO
[2024-02-11 03:33] LABS: Basophils Absolute Auto 0.1 X10*3/uL (0.0-0.2); Basophils Percent Auto 0.8 % (0-2); Eosinophils Absolute Auto 0.3 X10*3/uL (0.0-0.4); Eosinophils Percent Auto 3.3 % (0-4); Hematocrit 36.4 % (37.0-47.0); Hemoglobin 12.1 g/dl (12.0-16.0); Imm Gran Abs Auto 0.03 X10*3/uL (0.00-0.03); Imm Gran Pct Auto 0.3 % (0.0-0.4); Lymphocytes Percent Auto 34.3 % (20-40); Mean Corpuscular HGB Conc 33.2 g/dl (31.0-35.0); Mean Corpuscular Hemoglobin 24.6 pg (27.0-33.0); Mean Platelet Volume 9.3 fL (9.4-12.3); Monocytes Absolute Auto 0.5 X10*3/uL (0.1-1.2); Monocytes Percent Auto 5.3 % (2-11); Neutrophils Absolute Auto 4.9 x10*3/uL (2.0-8.3); Platelet Count 230 X10*3/uL (160-400); Red Blood Count 4.92 X10*6/uL (4.20-5.50); Red Cell Distribution Width 14.9 % (11.0-16.0); White Blood Count 8.7 X10*3/uL (4.8-10.8)
[2024-02-11 03:46] LABS: Alanine Aminotransferase 20 U/L (0-31); Albumin Level 3.9 g/dL (3.5-5.0); Alkaline Phosphatase 69 U/L (39-117); Anion Gap 16 (12-20); Aspartate Amino Transferase 24 U/L (5-31); Bilirubin Total 0.4 mg/dL (0.0-1.0); Blood Urea Nitrogen 13 mg/dL (9-16); Calcium 9.2 mg/dL (8.4-10.2); Carbon Dioxide 25 mmol/L (22-29); Chloride 101 mmol/L (96-108); Creatinine Clr Calc Pharmacy 91.8; Estimated Glomerular Filt Rate > 60; Glucose Random 165 mg/dL (60-115); Sodium 139 mmol/L (135-145); Total Protein 7.7 g/dL (6.5-8.0)
--- NOTE | 2024-02-11 03:49 | ED.ABDPAIN ---
HPI - Abdominal Pain General Chief Complaint: Abdominal Pain Stated Complaint: left side kidney stone pain Time Seen by Provider: 02/11/24 03:39 Source: patient Mode of arrival: ambulatory Limitations: no limitations History of Present Illness HPI narrative: Patient comes to the emergency room complaining of left-sided flank pain. Patient passed a kidney stone and brought it in with her. Patient states that for the last 20 years, she has had multiple stones. Patient came to the mostly for pain control. Patient was not here 10 days ago, has CT scan, showed bilateral kidney stones. Patient has an appointment pending with our urologist Dr. Salas sometime next week. Patient denies any fever or chills, complaining of nausea and vomiting Related Data Previous Rx's ?Medication ?Instructions ?Recorded ketorolac 10 mg tablet 10 mg PO TID PRN pain #14 tabs 04/12/23 tamsulosin 0.4 mg capsule (Flomax) 0.4 mg PO DAILY #14 caps 04/12/23 cefuroxime axetil 250 mg tablet 250 mg PO BID 7 days #14 tabs 06/17/23 oxycodone 5 mg tablet 5 mg PO Q8H PRN severe pain (scale 06/17/23 score 7-10) #6 tabs hydromorphone 2 mg tablet 2 mg PO Q6H PRN pain #14 tabs 08/04/23 (Dilaudid) hydromorphone 2 mg tablet 2 mg PO Q6H PRN pain #12 tabs 12/30/23 (Dilaudid) nitrofurantoin 100 mg PO BID 7 days #14 caps 12/30/23 monohydrate/macrocrystals 100 mg capsule (Macrobid) ondansetron 4 mg disintegrating 4 mg PO Q8H PRN nausea and 12/30/23 tablet vomiting #20 tabs ondansetron HCl 4 mg tablet 4 mg PO BEDTIME PRN nausea and 02/01/24 vomiting 4 days #7 tabs oxycodone 5 mg tablet 5 mg PO BID PRN pain (scale score 02/01/24 7-10) #10 tabs ketorolac 10 mg tablet 10 mg PO Q8H PRN pain #15 tabs 02/11/24 ondansetron 4 mg disintegrating 4 mg PO Q6H PRN nausea and 04/28/24 tablet vomiting #20 tabs oxycodone 5 mg tablet 5 mg PO Q8H PRN pain #10 tabs 02/11/24 Allergies Allergy/AdvReac Type Severity Reaction Status Date / Time amoxicillin Allergy Rash Verified 02/11/24 03:18 droperidol Allergy Hallucinati Verified 02/11/24 03:18 ons morphine Allergy Vomiting Verified 02/11/24 03:18 Penicillins [PCN] Allergy Rash Verified 02/11/24 03:18 Review of Systems Review of Systems Constitutional : No Weight loss, No Fever, No Chills, No Night Sweats, No Fatigue, No Malaise ENT/Mouth : No Hearing loss, No Ear Pain, No Nasal Congestion, No Sinus Pain, No Hoarseness, No sore throat, No Rhinorrhea, No Swallowing Difficulty Eyes: No Eye Pain, No Swelling, No Redness, No Foreign Body, No Discharge, No Vision Changes Cardiovascular : No Chest Pain, No SOB, No Dyspnea on Exertion, No Orthopnea, No Edema, No Palpitations Respiratory : No Cough, No Sputum, No Wheezing, No Smoke Exposure, No Dyspnea Gastrointestinal : Complaining of nausea, No Vomiting, No Diarrhea, No Constipation, No abdominal Pain, No Hematochezia, No Melena Genitourinary : no irregular bleeding, No Dysuria, No Urinary Frequency, No Hematuria, No Urinary Incontinence, No Urgency, complaining of Flank Pain, No Urinary Flow Changes, No Hesitancy Musculoskeletal : No joint pain, No Myalgias, No Joint Swelling Skin : No Skin Lesions, No rash Neuro : No Weakness, No Numbness, No Paresthesias, No Loss of Consciousness, No Dizziness, No Headache Psych : No Anxiety/Panic, No Depression, No SI/HI/AH/VH, No Social Issues, Heme/Lymph: No Bruising, No Bleeding,No Lymphadenopathy Endocrine : No Polyuria, No Polydipsia, No Temperature Intolerance [facility] Past Medical History Medical History (Updated 02/11/24 @ 06:21 by Dori Weldon MD) Ureterolithiasis Medullary sponge kidney Surgical History H/O lithotripsy Social History Social History Alcohol intake: never Smoked in Last 30 Days: No Use of substances other than those prescribed or required for medical reasons: No Advance Directives: No Advance Directives Information Provided: Yes Do you have a plan to hurt others: No Plan Physical Exam ED Vital Signs: Vital Signs - 24 hr 02/11/24 03:16 02/11/24 06:04 Temperature 98 F 97.5 F Pulse Rate 87 71 Respiratory Rate 16 16 Blood Pressure 130/78 129/77 Pulse Oximetry 100 97 Oxygen Delivery Method Room Air Room Air BMI result Body Mass Index 37.9 Const Other: Appearance: Alert. Oriented X3. Patient looks uncomfortable. Eyes: Pupils equal, round and reactive to light. ENT: Pharynx normal. Neck: Normal inspection. Neck supple. No lymph nodes noted. No crepitus CVS: Normal heart rate and rhythm. Pulses normal. Normal S1 and S2 Respiratory: No respiratory distress. Breath sounds normal. No Wheezing. No rales Abdomen: Soft and nontender. No rigidity. No distention. CV tenderness on the left Skin: Skin warm and dry. Normal skin color. Normal skin turgor. Extremities: No lower extremity edema. No Lacerations. No Rash Neuro: Oriented X 3. No motor deficit. No sensory deficit. Moving all extremities. No slurred speech. CN 2 through 12 grossly intact Psych: calm, cooperative, normal affect Course Course Course Narrative: -patient receiving IV fluids, ketorolac, Zofran - Medical Decision Making Medical Decision Making MDM Narrative: -patient had a CT scan done 10 days ago, patient known to have several kidney stones. So far all of them seem to be less than 5 mm. -patient will likely need stents, patient has a Urology consult pending My interpretation of labs: Patient's chemistry shows a potassium of 3.0, repleted p.o.. Patient states that she has had chronic hypokalemia in the past. -patient was given 2 doses of Dilaudid. Patient states that she feels much better, ready to go home. I discussed with the patient that I will be sending to her pharmacy a prescription of ketorolac and oxycodone. Dilaudid is on back order. I discussed with the patient that narcotics can cause addiction problems, patient states that she uses narcotics judiciously. However, patient will likely has more kidney stones unfortunately. Differential Diagnosis Differential Diagnoses: The differential diagnosis associated with the presentation includes (Renal colic, ureterolithiasis) Admission/Observation Consideration of admission/observation: Escalation of care including admission/observation considered (After 2 doses of Dilaudid, patient continues having pain per gradually getting better, observation/admission considered) Lab Data MDM Lab Attestation statement: I reviewed the patient's lab results. 02/11/24 03:28 02/11/24 03:28 Labs: Lab Results 02/11/24 02/11/24 Range/Units 03:28 03:51 WBC 8.7 (4.8-10.8) X10*3/uL RBC 4.92 (4.20-5.50) X10*6/uL Hgb 12.1 (12.0-16.0) g/dl Hct 36.4 L (37.0-47.0) % MCV 74.0 L (80.0-98.0) fL MCH 24.6 L (27.0-33.0) pg MCHC 33.2 (31.0-35.0) g/dl RDW 14.9 (11.0-16.0) % Plt Count 230 (160-400) X10*3/uL MPV 9.3 L (9.4-12.3) fL Immature Gran % (Auto) 0.3 (0.0-0.4) % Neut % (Auto) 56.0 (45-73) % Lymph % (Auto) 34.3 (20-40) % [place] % (Auto) 5.3 (2-11) % Eos % (Auto) 3.3 (0-4) % Baso % (Auto) 0.8 (0-2) % Lymph # (Auto) 3.0 (1.2-4.9) X10*3/uL [place] # (Auto) 0.5 (0.1-1.2) X10*3/uL Eos # (Auto) 0.3 (0.0-0.4) X10*3/uL Baso # (Auto) 0.1 (0.0-0.2) X10*3/uL Abs Immat Gran (auto) 0.03 (0.00-0.03) X10*3/uL Absolute Neuts (auto) 4.9 (2.0-8.3) x10*3/uL Absolute Nucleated RBC 0.000 (0.0-0.012) X10*3/uL Nucleated RBC % (auto) 0.0 (0.0-0.2) /100WBC Sodium 139 (135-145) mmol/L Potassium 3.0 L (3.3-5.1) mmol/L Chloride 101 (96-108) mmol/L Carbon Dioxide 25 (22-29) mmol/L Anion Gap 16 (12-20) BUN 13 (9-16) mg/dL Creatinine 1.01 (0.5-1.4) mg/dL Estim Creat Clear Calc 91.8 Estimated GFR > 60 Random Glucose 165 H (60-115) mg/dL Calcium 9.2 (8.4-10.2) mg/dL Total Bilirubin 0.4 (0.0-1.0) mg/dL AST 24 (5-31) U/L ALT 20 (0-31) U/L Alkaline Phosphatase 69 (39-117) U/L Total Protein 7.7 (6.5-8.0) g/dL Albumin 3.9 (3.5-5.0) g/dL Urine Color [place] A Urine Appearance Cloudy Urine pH 6.5 (5.0-9.0) Ur Specific [place] 1.020 (1.005-1.025) Urine Protein 30 (1+) H (Neg-Trace) mg/dL Urine Glucose (UA) Negative (Negative) mg/dL Urine Ketones Negative (Negative) mg/dL Urine Blood Large (3+) H (Negative) Urine Nitrite Negative (Negative) Ur Leukocyte Esterase Small (1+) H (Negative) Urine RBC >20 H (0-2) /HPF Urine WBC 0-5 (0-5) /HPF Ur Squamous Epith Cells 0-2 (0-2) /HPF Urine Bacteria None Seen (None Seen) Hyaline Casts 0-2 (0-2) /LPF Medications Administered Discontinued Medications Generic Name Dose Route Start Last Admin Trade Name Freq PRN Reason Stop Dose Admin Hydromorphone HCl 1 mg 02/11/24 04:41 02/11/24 05:00 Hydromorphone Hcl 1 Mg/Ml Syringe IVPUSH 02/11/24 04:42 1 mg ONCE ONE Administration Protocol Hydromorphone HCl 1 mg 02/11/24 06:05 02/11/24 06:27 Hydromorphone Hcl 1 Mg/Ml Syringe IVPUSH 02/11/24 06:06 1 mg ONCE ONE Administration Protocol Sodium Chloride 1,000 mls @ 999 mls/hr 02/11/24 03:47 02/11/24 05:46 Ns IVCONT 02/11/24 04:47 Infused .Q1H1M ONE Infusion Ketorolac Tromethamine 30 mg 02/11/24 03:47 02/11/24 04:01 Ketorolac Tromethamine 30 Mg/Ml Vial IVPUSH 02/11/24 03:48 30 mg ONCE ONE Administration Ondansetron HCl 4 mg 02/11/24 03:47 02/11/24 04:01 Ondansetron Hcl 4 Mg/2 Ml Vial IVPUSH 02/11/24 03:48 4 mg ONCE ONE Administration Ondansetron HCl 4 mg 02/11/24 06:05 02/11/24 06:27 Ondansetron Hcl 4 Mg/2 Ml Vial IVPUSH 02/11/24 06:06 4 mg ONCE ONE Administration Potassium Chloride 60 meq 02/11/24 06:13 02/11/24 06:27 Potassium Chloride Packet 20 Meq Packet PO 02/11/24 06:14 60 meq ONCE ONE Administration Critical Care Time Critical Care Time Critical Care Time: Yes Total Critical Care Time: 45 Attestation: I have personally provided critical care time. Time includes review of lab data, radiology results, discussion with consultants, and monitoring for potential decompensation. Intervention performed as documented. Discharge Plan Discharge Clinical Impression: Ureterolithiasis, Chronic hypokalemia Patient Disposition: Home, Self-Care Instructions: Renal Colic (ED), Hypokalemia (ED), Ureteral Stones (ED) Additional Instructions: Please follow-up with your primary care physician tomorrow. If you have any worsening or new symptoms, please return to the emergency room or call 911 Prescriptions: New ketorolac 10 mg tablet 10 mg PO Q8H PRN (Reason: pain) Qty: 15 0RF Rx Instructions: maximum total duration of 5 days from all oral, intranasal, or parenteral formulations oxycodone 5 mg tablet 5 mg PO Q8H PRN (Reason: pain) Qty: 10 0RF Rx Instructions: Partial Fill upon patient request. ondansetron 4 mg tablet,disintegrating 4 mg PO Q6H PRN (Reason: nausea and vomiting) Qty: 20 0RF No Action ketorolac 10 mg tablet 10 mg PO TID PRN (Reason: pain) Qty: 14 0RF tamsulosin [Flomax] 0.4 mg capsule 0.4 mg PO DAILY Qty: 14 0RF cefuroxime axetil 250 mg tablet 250 mg PO BID 7 Days Qty: 14 0RF oxycodone 5 mg tablet 5 mg PO Q8H PRN (Reason: severe pain (scale score 7-10)) Qty: 6 0RF Rx Instructions: Partial Fill upon patient request. hydromorphone [Dilaudid] 2 mg tablet 2 mg PO Q6H PRN (Reason: pain) Qty: 14 0RF Rx Instructions: Partial Fill upon patient request. ondansetron 4 mg tablet,disintegrating 4 mg PO Q8H PRN (Reason: nausea and vomiting) Qty: 20 0RF nitrofurantoin monohyd/m-cryst [Macrobid] 100 mg capsule 100 mg PO BID 7 Days Qty: 14 0RF Rx Instructions: must administer with a meal/food hydromorphone [Dilaudid] 2 mg tablet 2 mg PO Q6H PRN (Reason: pain) Qty: 12 0RF Rx Instructions: Partial Fill upon patient request. oxycodone 5 mg tablet 5 mg PO BID PRN (Reason: pain (scale score 7-10)) Qty: 10 0RF Rx Instructions: Partial Fill upon patient request. ondansetron HCl 4 mg tablet 4 mg PO BEDTIME PRN (Reason: nausea and vomiting) 4 Days Qty: 7 0RF Referrals: Surekha Simental MD [Physician] - 02/12/24 Stand Alone Forms: Work/School Release Print Language: [place]
[2024-02-11 03:56] LABS: Appearance Urine Cloudy; Color Urine Orange; Glucose Urine UA Negative (Negative); Leukocyte Esterase Urine Small (1+) (Negative); Nitrite Urine Negative (Negative); PH 6.5 (5.0-9.0); UMIC TRIGGER UACC YES; Urine Blood Large (3+) (Negative); Urine Ketones Negative (Negative); Urine Protein 30 (1+) mg/dL (Neg-Trace)
[2024-02-11] MEDS: ondansetron HCL 4 MG/2 ML VIAL IVPUSH ×2 (04:01→06:27)
[2024-02-11] MEDS: Ketorolac Tromethamine 30 MG/ML VIAL IVPUSH (04:01)
[2024-02-11] MEDS: 0.9 % Sodium Chloride 1,000 ML 999 ML IVCONT (04:02)
[2024-02-11 04:08] LABS: Bacteria Urine None Seen (None Seen); Hyaline Casts Urine 0-2 /LPF (0-2); RBC Urine >20 /HPF (0-2); Squamous Epithelial Cell Urine 0-2 /HPF (0-2); UACC Culture Trigger YES; WBC Urine 0-5 /HPF (0-5)
[2024-02-11] MEDS: HYDROmorphone HCl 1 MG/ML SYRINGE IVPUSH ×2 (05:00→06:27)
--- NOTE | 2024-02-11 05:04 | PC.NURSE ---
this RN resumed care of pt at this time. a&ox4. vss and up to date. pt c/o 05/25 left sided flank pain despite previous medication administration. pt now medicated per provider order. effectiveness pending. no sob/wob noted. respirations even and unlabored. plan of care ongoing. call ortez placed within reach.
--- NOTE | 2024-02-11 05:53 | PC.NURSE ---
pt verbalizing effectiveness post medication administration. pt continues to rest w/ the lights dimmed. no sob/wob noted. respirations remain even and unlabored. call ortez placed within reach.
[2024-02-11 06:04] VITALS: BP 129/77; PULSE 71; RESP 16; TEMP 36.4; O2SAT 97
[2024-02-11] MEDS: Potassium Chloride Packet 20 MEQ PACKET 60 MEQ PO (06:27)
--- NOTE | 2024-02-11 06:33 | PC.NURSE ---
pt still verbalizing 6/10 left flank pain and nausea. pt medicated per provider order. effectiveness pending. pt spoke w/ ED provider/aware of plan of care moving forward. partner bedside for support. plan of care ongoing. call ortez placed within reach.
[2024-02-11 07:13] VITALS: BP 129/77; PULSE 71; RESP 16; TEMP 36.4
== END 2024-02-11 07:14 | disposition home or self-care (01) ==
PROVIDERS: Emergency Provider Emergency Medicine
DX: N20.1 Calculus of ureter (principal); E87.6 Hypokalemia; Z87.442 Personal history of urinary calculi
CPT/HCPCS: 36415; 80053; 81001; 85025; 87086; 96361; 96374; 96375; 96376; 99284; 99285; J1170; J1885; J2405

== ENCOUNTER 2024-03-06 21:45 | Emergency (ER) | payer OTHER, SELFPAY ==
--- NOTE | ~2024-03-06 | CT_ITS ---
EXAMINATION: CT ABDOMEN AND PELVIS WITHOUT CONTRAST CLINICAL INFORMATION: Flank pain. History of renal calculi. COMPARISON: 02/01/2024. TECHNIQUE: Multidetector volumetric imaging was performed from the superior aspect of the liver through the pubic symphysis. Sagittal and coronal reformatted images were obtained on the technologist's workstation. This CT examination was performed using dose optimization techniques as appropriate, variously including the following: *Automated exposure control *Adjustment of mA and/or kV according to patient size (this includes techniques or standardized protocols for targeted exams where dose is matched to indication/reason for exam; i.e. extremities or head) *Use of iterative reconstruction technique DLP: 794 mGy-cm FINDINGS: LUNG BASES: The visualized lung bases are unremarkable. LIVER, GALLBLADDER, AND BILIARY TREE: The liver is normal in size, shape, and attenuation. No focal hepatic lesion or biliary ductal dilatation is present. The gallbladder is unremarkable with no evidence of radiopaque gallstones, gallbladder wall thickening, or obvious pericholecystic inflammatory changes. PANCREAS: Unremarkable. SPLEEN: Unremarkable. ADRENAL GLANDS: Unremarkable. KIDNEYS AND URETERS: The kidneys are normal in size, shape, and attenuation. Multiple scattered bilateral nonobstructing renal calculi are again seen measuring 1 to 2 mm. The renal pyramids are mildly hyperdense. There is no hydronephrosis. BLADDER: Unremarkable. GASTROINTESTINAL TRACT: The small and large bowel are unremarkable. The appendix is unremarkable. ABDOMINAL WALL: There is a small umbilical hernia containing fat. LYMPH NODES: Normal. VASCULAR: Unremarkable. PELVIC VISCERA: Unremarkable. OSSEOUS STRUCTURES: Unremarkable. CT/CT abdomen pelvis wo IV con IMPRESSION: 1. Multiple scattered bilateral nonobstructing renal calculi measuring 1 to 2 mm. No hydronephrosis. 2. Mildly hyperdense renal pyramids, which can be seen in the setting of medullary nephrocalcinosis. Fleischner guidelines were followed.
[2024-03-06 22:07] VITALS: BP 138/91; PULSE 103; RESP 18; TEMP 37.3; O2SAT 96; BMI 38.3
[2024-03-06 22:36] LABS: MANUAL DIFF FLAG NO
--- NOTE | 2024-03-06 22:43 | MHC.EDTECH ---
PATIENT BLOOD DRAWN ,URINE SAMPLE COLLECTED AND SENT TO LAB .
[2024-03-06 22:45] LABS: Appearance Urine Cloudy; Color Urine Yellow; Glucose Urine UA Negative (Negative); Leukocyte Esterase Urine Negative (Negative); Nitrite Urine Negative (Negative); PH 5.5 (5.0-9.0); Specific Gravity - Urine 1.025 (1.005-1.025); UMIC TRIGGER UACC YES; Urine Blood Moderate (2+) (Negative); Urine Ketones Negative (Negative); Urine Protein Trace mg/dL (Neg-Trace)
[2024-03-06 22:48] LABS: Basophils Absolute Auto 0.1 X10*3/uL (0.0-0.2); Basophils Percent Auto 0.5 % (0-2); Eosinophils Absolute Auto 0.3 X10*3/uL (0.0-0.4); Eosinophils Percent Auto 2.6 % (0-4); Hematocrit 37.1 % (37.0-47.0); Hemoglobin 11.9 g/dl (12.0-16.0); Imm Gran Abs Auto 0.03 X10*3/uL (0.00-0.03); Imm Gran Pct Auto 0.3 % (0.0-0.4); Lymphocytes Absolute Auto 3.3 X10*3/uL (1.2-4.9); Lymphocytes Percent Auto 29.5 % (20-40); Mean Corpuscular HGB Conc 32.1 g/dl (31.0-35.0); Mean Corpuscular Hemoglobin 24.4 pg (27.0-33.0); Mean Corpuscular Volume 76.2 fL (80.0-98.0); Mean Platelet Volume 9.9 fL (9.4-12.3); Monocytes Absolute Auto 0.6 X10*3/uL (0.1-1.2); Monocytes Percent Auto 5.3 % (2-11); Neutrophils Absolute Auto 6.9 x10*3/uL (2.0-8.3); Neutrophils Percent Auto 61.8 % (45-73); Platelet Count 235 X10*3/uL (160-400); Red Blood Count 4.87 X10*6/uL (4.20-5.50); Red Cell Distribution Width 15.9 % (11.0-16.0); White Blood Count 11.2 X10*3/uL (4.8-10.8)
[2024-03-06 22:50] LABS: Bacteria Urine 4+ (None Seen); Hyaline Casts Urine 0-2 /LPF (0-2); RBC Urine >20 /HPF (0-2); UPreg QC Valid YES; Urine Pregnancy NEGATIVE (NEGATIVE); WBC Urine 0-5 /HPF (0-5)
[2024-03-06 22:51] LABS: Alanine Aminotransferase 22 U/L (0-31); Albumin Level 3.9 g/dL (3.5-5.0); Alkaline Phosphatase 73 U/L (39-117); Anion Gap 14 (12-20); Aspartate Amino Transferase 21 U/L (5-31); Bilirubin Total 0.4 mg/dL (0.0-1.0); Blood Urea Nitrogen 12 mg/dL (9-16); Calcium 9.3 mg/dL (8.4-10.2); Carbon Dioxide 24 mmol/L (22-29); Chloride 105 mmol/L (96-108); Creatinine Clr Calc Pharmacy 116.5; Estimated Glomerular Filt Rate > 60; Glucose Random 129 mg/dL (60-115); Potassium 3.2 mmol/L (3.3-5.1); Sodium 140 mmol/L (135-145); Total Protein 7.5 g/dL (6.5-8.0)
[2024-03-07 00:44] VITALS: BP 138/79; PULSE 90; RESP 18; TEMP 36.6; O2SAT 98
--- NOTE | 2024-03-07 00:45 | PC.NURSE ---
Pt ca&ox4, no signs of distress. Pt reporting 10/10 bilateral flank pain, and nausea with onset of 1500 today. Pt denies vomiting. Pt reports a hx of CKD. Pt also reports taking zofran, flomax, and toradol at home around 2030 with no change in sxs. Pts spouse at bedside. Plan of care ongoing.
[2024-03-07] MEDS: 0.9 % Sodium Chloride 1,000 ML 999 ML IVCONT (01:28)
[2024-03-07] MEDS: Potassium Chloride Packet 20 MEQ PACKET 40 MEQ PO (01:28)
[2024-03-07] MEDS: ondansetron HCL 4 MG/2 ML VIAL IVPUSH (01:30)
[2024-03-07 01:31] VITALS: RESP 14
[2024-03-07] MEDS: HYDROmorphone HCl 1 MG/ML SYRINGE IVPUSH (01:31)
--- NOTE | 2024-03-07 01:34 | PC.NURSE ---
Pt ca&ox4, no signs of distress. IV access obtained. Pt medicated per dec. Pt confirmed med allergies, denies allergy to dilaudid Plan of care ongoing
--- NOTE | 2024-03-07 01:36 | PC.NURSE ---
Pt with CT. Plan of care ongoing.
--- NOTE | 2024-03-07 01:59 | ED.FEMALEGU ---
HPI - Female Genitourinary General Chief complaint: Urogenital-Female Stated complaint: Bilateral kidney stone pain Time Seen by Provider: 03/07/24 00:55 Source: patient Mode of arrival: ambulatory Limitations: no limitations History of Present Illness ED Provider: Dr. Dori Weldon HPI Narrative: Patient comes to the emergency room complaining of bilateral flank pain. Patient known to have kidney stones. Patient states that she has been taking ketorolac [id number] multiple times throughout the day with no pain relief. Patient denies dysuria. No fever or chills. Patient states that she has passed 11 mm stones in the past. Related Data Previous Rx's ?Medication ?Instructions ?Recorded ketorolac 10 mg tablet 10 mg PO TID PRN pain #14 tabs 04/12/23 tamsulosin 0.4 mg capsule (Flomax) 0.4 mg PO DAILY #14 caps 04/12/23 cefuroxime axetil 250 mg tablet 250 mg PO BID 7 days #14 tabs 06/17/23 oxycodone 5 mg tablet 5 mg PO Q8H PRN severe pain (scale 06/17/23 score 7-10) #6 tabs hydromorphone 2 mg tablet 2 mg PO Q6H PRN pain #14 tabs 08/04/23 (Dilaudid) hydromorphone 2 mg tablet 2 mg PO Q6H PRN pain #12 tabs 12/30/23 (Dilaudid) nitrofurantoin 100 mg PO BID 7 days #14 caps 12/30/23 monohydrate/macrocrystals 100 mg capsule (Macrobid) ondansetron 4 mg disintegrating 4 mg PO Q8H PRN nausea and 12/30/23 tablet vomiting #20 tabs ondansetron HCl 4 mg tablet 4 mg PO BEDTIME PRN nausea and 02/01/24 vomiting 4 days #7 tabs oxycodone 5 mg tablet 5 mg PO BID PRN pain (scale score 02/01/24 7-10) #10 tabs ketorolac 10 mg tablet 10 mg PO Q8H PRN pain #15 tabs 02/11/24 ondansetron 4 mg disintegrating 4 mg PO Q6H PRN nausea and 02/11/24 tablet vomiting #20 tabs oxycodone 5 mg tablet 5 mg PO Q8H PRN pain #10 tabs 02/11/24 tamsulosin 0.4 mg capsule (Flomax) 0.4 mg PO DAILY #14 caps 02/11/24 naproxen 500 mg tablet 500 mg PO BID pain #20 tabs 02/15/24 ondansetron HCl 4 mg tablet 4 mg PO Q6H PRN nausea and 03/07/24 vomiting #14 tabs oxycodone 5 mg tablet 5 mg PO BID PRN pain #8 tabs 03/07/24 tamsulosin 0.4 mg capsule 0.4 mg PO DAILY #10 caps 03/07/24 Allergies Allergy/AdvReac Type Severity Reaction Status Date / Time amoxicillin Allergy Rash Verified 03/06/24 22:10 droperidol Allergy Hallucinati Verified 03/06/24 22:10 ons morphine Allergy Vomiting Verified 03/06/24 22:10 Penicillins [PCN] Allergy Rash Verified 03/06/24 22:10 Review of Systems Review of Systems: Constitutional : No Weight loss, No Fever, No Chills, No Night Sweats, No Fatigue, No Malaise ENT/Mouth : No Hearing loss, No Ear Pain, No Nasal Congestion, No Sinus Pain, No Hoarseness, No sore throat, No Rhinorrhea, No Swallowing Difficulty Eyes: No Eye Pain, No Swelling, No Redness, No Foreign Body, No Discharge, No Vision Changes Cardiovascular : No Chest Pain, No SOB, No Dyspnea on Exertion, No Orthopnea, No Edema, No Palpitations Respiratory : No Cough, No Sputum, No Wheezing, No Smoke Exposure, No Dyspnea Gastrointestinal : No Nausea, No Vomiting, No Diarrhea, No Constipation, No abdominal Pain, No Hematochezia, No Melena Genitourinary : no irregular bleeding, No Dysuria, No Urinary Frequency, No Hematuria, No Urinary Incontinence, No Urgency, complaining of bilateral Flank Pain, No Urinary Flow Changes, No Hesitancy Musculoskeletal : No joint pain, No Myalgias, No Joint Swelling Skin : No Skin Lesions, No rash Neuro : No Weakness, No Numbness, No Paresthesias, No Loss of Consciousness, No Dizziness, No Headache Psych : No Anxiety/Panic, No Depression, No SI/HI/AH/VH, No Social Issues, Heme/Lymph: No Bruising, No Bleeding,No Lymphadenopathy Endocrine : No Polyuria, No Polydipsia, No Temperature Intolerance PMFSH Past Medical History Medical History Ureterolithiasis Medullary sponge kidney Surgical History H/O lithotripsy Social History Social History Alcohol intake: never Smoked in Last 30 Days: No Use of substances other than those prescribed or required for medical reasons: No Advance Directives: No Advance Directives Information Provided: No Do you have a plan to hurt others: No Plan Patient : No Physical Exam Vital Signs: Vital Signs: Last Vital Signs Temp 97.9 F 03/07/24 00:44 Pulse 90 03/07/24 00:44 Resp 14 03/07/24 01:31 BP 138/79 03/07/24 00:44 Pulse Ox 98 03/07/24 00:44 O2 Del Method Room Air 03/07/24 00:44 BMI result Body Mass Index 38.3 Const: Other: Appearance: Alert. Oriented X3. No acute distress. Eyes: Pupils equal, round and reactive to light. ENT: Pharynx normal. Neck: Normal inspection. Neck supple. No lymph nodes noted. No crepitus CVS: Normal heart rate and rhythm. Pulses normal. Normal S1 and S2 Respiratory: No respiratory distress. Breath sounds normal. No Wheezing. No rales Abdomen: Soft and nontender. No rigidity. No distention. No abdominal pain, mild CVA tenderness bilaterally Skin: Skin warm and dry. Normal skin color. Normal skin turgor. Extremities: No lower extremity edema. No Lacerations. No Rash Neuro: Oriented X 3. No motor deficit. No sensory deficit. Moving all extremities. No slurred speech. CN 2 through 12 grossly intact Psych: calm, cooperative, normal affect Medications Administered Discontinued Medications Generic Name Dose Route Start Last Admin Trade Name Freq PRN Reason Stop Dose Admin Hydromorphone HCl 1 mg 03/07/24 01:08 03/07/24 01:31 Hydromorphone Hcl 1 Mg/Ml Syringe IVPUSH 03/07/24 01:09 1 mg ONCE ONE Administration Protocol Sodium Chloride 1,000 mls @ 999 mls/hr 03/07/24 01:08 03/07/24 01:28 Ns IVCONT 03/07/24 02:08 999 mls/hr .Q1H1M ONE Administration Ondansetron HCl 4 mg 03/07/24 01:08 03/07/24 01:30 Ondansetron Hcl 4 Mg/2 Ml Vial IVPUSH 03/07/24 01:09 4 mg ONCE ONE Administration Potassium Chloride 40 meq 03/07/24 01:08 03/07/24 01:28 Potassium Chloride Packet 20 Meq Packet PO 03/07/24 01:09 40 meq ONCE ONE Administration Medical Decision Making Medical Decision Making [facility] Narrative: -my interpretation of labs: White blood cell count 11.2, chemistry shows low potassium of 3.2 which is chronic for the patient. LFTs within normal limits. Urinalysis shows moderate amount of blood which is chronic for the patient, no nitrates or leukocyte esterase with +4 bacteria. Patient has had similar looking urinalysis in the past but reviewing patient's medical records, microbiology shows no growth -patient received a dose of IV fluids, Zofran, Dilaudid. -CT scan pending. If there is an obstructing stone, there is a chance the patient may need to be admitted. -sign-out given to my colleague Dr. Henley Differential Diagnosis Differential Diagnoses: The differential diagnosis associated with the presentation includes (UTI, pyelonephritis, ureterolithiasis, renal colic) Admission/Observation Consideration of admission/observation: Escalation of care including admission/observation considered (Given patient's presentation past medical history, admission/observation has been considered) Lab Data [facility] Lab Attestation statement: I reviewed the patient's lab results. 03/06/24 22:32 03/06/24 22:32 Labs: Lab Results 03/06/24 Range/Units 22:32 WBC 11.2 H (4.8-10.8) X10*3/uL RBC 4.87 (4.20-5.50) X10*6/uL Hgb 11.9 L (12.0-16.0) g/dl Hct 37.1 (37.0-47.0) % MCV 76.2 L (80.0-98.0) fL MCH 24.4 L (27.0-33.0) pg MCHC 32.1 (31.0-35.0) g/dl RDW 15.9 (11.0-16.0) % Plt Count 235 (160-400) X10*3/uL MPV 9.9 (9.4-12.3) fL Immature Gran % (Auto) 0.3 (0.0-0.4) % Neut % (Auto) 61.8 (45-73) % Lymph % (Auto) 29.5 (20-40) % [place] % (Auto) 5.3 (2-11) % Eos % (Auto) 2.6 (0-4) % Baso % (Auto) 0.5 (0-2) % Lymph # (Auto) 3.3 (1.2-4.9) X10*3/uL [place] # (Auto) 0.6 (0.1-1.2) X10*3/uL Eos # (Auto) 0.3 (0.0-0.4) X10*3/uL Baso # (Auto) 0.1 (0.0-0.2) X10*3/uL Abs Immat Gran (auto) 0.03 (0.00-0.03) X10*3/uL Absolute Neuts (auto) 6.9 (2.0-8.3) x10*3/uL Absolute Nucleated RBC 0.000 (0.0-0.012) X10*3/uL Nucleated RBC % (auto) 0.0 (0.0-0.2) /100WBC Sodium 140 (135-145) mmol/L Potassium 3.2 L (3.3-5.1) mmol/L Chloride 105 (96-108) mmol/L Carbon Dioxide 24 (22-29) mmol/L Anion Gap 14 (12-20) BUN 12 (9-16) mg/dL Creatinine 0.80 (0.5-1.4) mg/dL Estim Creat Clear Calc 116.5 Estimated GFR > 60 Random Glucose 129 H (60-115) mg/dL Calcium 9.3 (8.4-10.2) mg/dL Total Bilirubin 0.4 (0.0-1.0) mg/dL AST 21 (5-31) U/L ALT 22 (0-31) U/L Alkaline Phosphatase 73 (39-117) U/L Total Protein 7.5 (6.5-8.0) g/dL Albumin 3.9 (3.5-5.0) g/dL Urine Color Yellow Urine Appearance Cloudy Urine pH 5.5 (5.0-9.0) Ur Specific [place] 1.025 (1.005-1.025) Urine Protein Trace (Neg-Trace) mg/dL Urine Glucose (UA) Negative (Negative) mg/dL Urine Ketones Negative (Negative) mg/dL Urine Blood Moderate (2+) H (Negative) Urine Nitrite Negative (Negative) Ur Leukocyte Esterase Negative (Negative) Urine RBC >20 H (0-2) /HPF Urine WBC 0-5 (0-5) /HPF Ur Squamous Epith Cells 11-20 (0-2) /HPF Urine Bacteria 4+ (None Seen) Hyaline Casts 0-2 (0-2) /LPF Urine Test NEGATIVE (NEGATIVE) Independent Interpretation I performed an independent interpretation of an: CT Scan (My interpretation CT scan: Bilateral less than 4 mm stones in both ureters) Critical Care Time Critical Care Time Critical Care Time: Yes Total Critical Care Time: 35 Attestation: I have personally provided critical care time. Time includes review of lab data, radiology results, discussion with consultants, and monitoring for potential decompensation. Intervention performed as documented. Discharge Plan Discharge Clinical Impression: Ureterolithiasis Patient Disposition: Home, Self-Care Instructions: Ureteral Stones (ED) Additional Instructions: Please follow-up with your primary care physician tomorrow. If you have any worsening or new symptoms, please return to the emergency room or call 911 Prescriptions: New oxycodone 5 mg tablet 5 mg PO BID PRN (Reason: pain) Qty: 8 0RF Rx Instructions: Partial Fill upon patient request. ondansetron HCl 4 mg tablet 4 mg PO Q6H PRN (Reason: nausea and vomiting) Qty: 14 0RF tamsulosin 0.4 mg capsule 0.4 mg PO DAILY Qty: 10 0RF No Action naproxen 500 mg tablet 500 mg PO BID Qty: 20 0RF ketorolac 10 mg tablet 10 mg PO TID PRN (Reason: pain) Qty: 14 0RF tamsulosin [Flomax] 0.4 mg capsule 0.4 mg PO DAILY Qty: 14 0RF cefuroxime axetil 250 mg tablet 250 mg PO BID 7 Days Qty: 14 0RF oxycodone 5 mg tablet 5 mg PO Q8H PRN (Reason: severe pain (scale score 7-10)) Qty: 6 0RF Rx Instructions: Partial Fill upon patient request. hydromorphone [Dilaudid] 2 mg tablet 2 mg PO Q6H PRN (Reason: pain) Qty: 14 0RF Rx Instructions: Partial Fill upon patient request. ondansetron 4 mg tablet,disintegrating 4 mg PO Q8H PRN (Reason: nausea and vomiting) Qty: 20 0RF nitrofurantoin monohyd/m-cryst [Macrobid] 100 mg capsule 100 mg PO BID 7 Days Qty: 14 0RF Rx Instructions: must administer with a meal/food hydromorphone [Dilaudid] 2 mg tablet 2 mg PO Q6H PRN (Reason: pain) Qty: 12 0RF Rx Instructions: Partial Fill upon patient request. oxycodone 5 mg tablet 5 mg PO BID PRN (Reason: pain (scale score 7-10)) Qty: 10 0RF Rx Instructions: Partial Fill upon patient request. ondansetron HCl 4 mg tablet 4 mg PO BEDTIME PRN (Reason: nausea and vomiting) 4 Days Qty: 7 0RF ketorolac 10 mg tablet 10 mg PO Q8H PRN (Reason: pain) Qty: 15 0RF Rx Instructions: maximum total duration of 5 days from all oral, intranasal, or parenteral formulations oxycodone 5 mg tablet 5 mg PO Q8H PRN (Reason: pain) Qty: 10 0RF Rx Instructions: Partial Fill upon patient request. ondansetron 4 mg tablet,disintegrating 4 mg PO Q6H PRN (Reason: nausea and vomiting) Qty: 20 0RF tamsulosin [Flomax] 0.4 mg capsule 0.4 mg PO DAILY Qty: 14 0RF Print Language: Arabic
[2024-03-07 02:36] VITALS: BP 124/80; PULSE 83; RESP 17; O2SAT 96
[2024-03-07 03:13] VITALS: BP 124/80; PULSE 83; RESP 17; TEMP 37; O2SAT 96
== END 2024-03-07 03:18 | disposition home or self-care (01) ==
PROVIDERS: Emergency Provider Emergency Medicine
DX: N20.1 Calculus of ureter (principal); R10.9 Unspecified abdominal pain; Z87.442 Personal history of urinary calculi; Z79.899 Other long term (current) drug therapy
CPT/HCPCS: 36415; 74176; 80053; 81001; 81025; 85025; 96361; 96374; 96375; 99284; J1170; J2405

== ENCOUNTER 2024-04-18 21:20 | Emergency (ER) | payer OTHER, SELFPAY ==
--- NOTE | ~2024-04-18 | XR_ITS ---
EXAMINATION: XR CHEST CLINICAL INFORMATION: Cough COMPARISON: None available. TECHNIQUE: 2 views of the chest were obtained. FINDINGS: No significant abnormality is noted involving the heart, lungs, mediastinum, bony thorax or soft tissues. XR/XR chest 2V IMPRESSION: Unremarkable examination.
[2024-04-18 21:37] VITALS: BP 130/88; PULSE 95; RESP 16; TEMP 36; O2SAT 98; BMI 38.6
--- NOTE | 2024-04-18 21:50 | MHC.EDTECH ---
Addendum entered by Berta Christensen 04/18/24 21:52: CT-Scan Original Note: This tech called patient to get labs,patient is in x-ray at this time
[2024-04-18 22:00] LABS: Appearance Urine Cloudy; Color Urine Yellow; Glucose Urine UA Negative (Negative); Leukocyte Esterase Urine Negative (Negative); Nitrite Urine Negative (Negative); UMIC TRIGGER UACC YES; Urine Blood Large (3+) (Negative); Urine Ketones Negative (Negative); Urine Protein Negative (Neg-Trace)
--- NOTE | 2024-04-18 22:10 | ED_ITS ---
HPI - Female Genitourinary General Chief complaint: Urogenital-Female Stated complaint: R side kidney stone? Time Seen by Provider: 04/18/24 22:10 Source: patient Mode of arrival: ambulatory Limitations: no limitations History of Present Illness ED Provider: lima DOMINGUEZ Narrative: Patient's history of medullary sponge kidney no history of any obstructive kidney stone had multiple CT scans 3 CT scans this year for flank pain never showed any obstructive stone comes here for pain in the right flank started early today along with nausea and vomiting vomited 3 times no dave hematuria patient took Flomax Toradol and Zofran 2 hours prior to arrival no shortness a breath at this time no abdominal pain no diarrhea no other family member sick Related Data Previous Rx's ?Medication ?Instructions ?Recorded ketorolac 10 mg tablet 10 mg PO TID PRN pain #14 tabs 04/12/23 tamsulosin 0.4 mg capsule (Flomax) 0.4 mg PO DAILY #14 caps 04/12/23 cefuroxime axetil 250 mg tablet 250 mg PO BID 7 days #14 tabs 06/17/23 oxycodone 5 mg tablet 5 mg PO Q8H PRN severe pain (scale 06/17/23 score 7-10) #6 tabs hydromorphone 2 mg tablet 2 mg PO Q6H PRN pain #14 tabs 08/04/23 (Dilaudid) hydromorphone 2 mg tablet 2 mg PO Q6H PRN pain #12 tabs 12/30/23 (Dilaudid) nitrofurantoin 100 mg PO BID 7 days #14 caps 12/30/23 monohydrate/macrocrystals 100 mg capsule (Macrobid) ondansetron 4 mg disintegrating 4 mg PO Q8H PRN nausea and 12/30/23 tablet vomiting #20 tabs ondansetron HCl 4 mg tablet 4 mg PO BEDTIME PRN nausea and 02/01/24 vomiting 4 days #7 tabs oxycodone 5 mg tablet 5 mg PO BID PRN pain (scale score 02/01/24 7-10) #10 tabs ketorolac 10 mg tablet 10 mg PO Q8H PRN pain #15 tabs 02/11/24 ondansetron 4 mg disintegrating 4 mg PO Q6H PRN nausea and 02/11/24 tablet vomiting #20 tabs oxycodone 5 mg tablet 5 mg PO Q8H PRN pain #10 tabs 02/11/24 tamsulosin 0.4 mg capsule (Flomax) 0.4 mg PO DAILY #14 caps 02/11/24 naproxen 500 mg tablet 500 mg PO BID pain #20 tabs 02/15/24 ondansetron HCl 4 mg tablet 4 mg PO Q6H PRN nausea and 03/07/24 vomiting #14 tabs oxycodone 5 mg tablet 5 mg PO BID PRN pain #8 tabs 03/07/24 tamsulosin 0.4 mg capsule 0.4 mg PO DAILY #10 caps 03/07/24 ibuprofen 600 mg tablet 600 mg PO Q6H PRN fever or pain 04/18/24 #30 tabs ondansetron 4 mg disintegrating 4 mg PO Q6-8H PRN nausea and 04/18/24 tablet vomiting #7 tabs Allergies Allergy/AdvReac Type Severity Reaction Status Date / Time amoxicillin Allergy Rash Verified 04/18/24 21:39 droperidol Allergy Hallucinati Verified 04/18/24 21:39 ons morphine Allergy Vomiting Verified 04/18/24 21:39 Penicillins [PCN] Allergy Rash Verified 04/18/24 21:39 Review of Systems Review of Systems: Yes all other systems are reviewed and are negative PMFSH Past Medical History Medical History Ureterolithiasis Medullary sponge kidney Surgical History H/O lithotripsy Social History Social History Alcohol intake: never Smoked in Last 30 Days: No Use of substances other than those prescribed or required for medical reasons: No Any prior treatment program specific to substance use: No Advance Directives: No Advance Directives Information Provided: No Patient : No Physical Exam Vital Signs: Vital Signs: Last Vital Signs Temp 96.8 F 04/18/24 22:47 Pulse 95 04/18/24 22:47 Resp 16 04/18/24 22:47 BP 130/88 04/18/24 22:47 Pulse Ox 98 04/18/24 22:47 O2 Del Method Room Air 04/18/24 22:47 BMI result Body Mass Index 38.6 Appearance: Alert. Oriented X3. No acute distress. Eyes: No pallor or icterus ENT: Pharynx normal. Oral Mucosa moist Neck: Normal inspection. Neck supple. CVS: Normal heart rate and rhythm. Pulses normal. Respiratory: No respiratory distress. Equal air entry bilateral, no wheezing/rales/rhonchi Abdomen: Soft and nontender. Bowel sounds are present, no mass palpable, mild r CVA tenderness Skin: Skin warm and dry. Normal skin color. Normal skin turgor. Extremities: No lower extremity edema. No calf tenderness Neuro: Oriented X 3. Medications Administered Discontinued Medications Generic Name Dose Route Start Last Admin Trade Name Freq PRN Reason Stop Dose Admin Ondansetron HCl 4 mg 04/18/24 22:16 04/18/24 22:29 Ondansetron Odt 4 Mg Tab.Rapdis TRANSLINGU 04/18/24 22:17 4 mg ONCE ONE Administration Tramadol HCl 50 mg 04/18/24 22:16 04/18/24 22:29 Tramadol Hcl 50 Mg Tablet PO 04/18/24 22:17 50 mg ONCE ONE Administration Medical Decision Making Medical Decision Making [facility] Narrative: Patient has medullary sponge kidney with frequent pain had multiple CT scan of the past urine is negative for acute, will discharge patient home chest x-ray negative for aspiration Differential Diagnosis Differential Diagnoses: The differential diagnosis associated with the presentation includes Lab Data [facility] Lab Attestation statement: I reviewed the patient's lab results. Labs: Lab Results 04/18/24 Range/Units 21:50 Urine Color Yellow Urine Appearance Cloudy Urine pH 6.0 (5.0-9.0) Ur Specific [place] 1.020 (1.005-1.025) Urine Protein Negative (Neg-Trace) mg/dL Urine Glucose (UA) Negative (Negative) mg/dL Urine Ketones Negative (Negative) mg/dL Urine Blood Large (3+) H (Negative) Urine Nitrite Negative (Negative) Ur Leukocyte Esterase Negative (Negative) Urine RBC >20 H (0-2) /HPF Urine WBC 0-5 (0-5) /HPF Ur Squamous Epith Cells 11-20 (0-2) /HPF Urine Bacteria 4+ (None Seen) Hyaline Casts 0-2 (0-2) /LPF Independent Interpretation I performed an independent interpretation of an: Plain X-Ray Radiology Impression Discussion of test interpretation with radiology: I have reviewed the radiologist's reading. Discharge Plan Discharge Clinical Impression: Chronic flank pain Patient Disposition: Home, Self-Care Instructions: Flank Pain (ED) Additional Instructions: Your chest x-ray negative for any aspiration Take ibuprofen for pain as needed Follow with your PCP/urology Prescriptions: New ibuprofen 600 mg tablet 600 mg PO Q6H PRN (Reason: fever or pain) Qty: 30 0RF ondansetron 4 mg tablet,disintegrating 4 mg PO Q6-8H PRN (Reason: nausea and vomiting) Qty: 7 0RF No Action naproxen 500 mg tablet 500 mg PO BID Qty: 20 0RF ketorolac 10 mg tablet 10 mg PO TID PRN (Reason: pain) Qty: 14 0RF tamsulosin [Flomax] 0.4 mg capsule 0.4 mg PO DAILY Qty: 14 0RF cefuroxime axetil 250 mg tablet 250 mg PO BID 7 Days Qty: 14 0RF oxycodone 5 mg tablet 5 mg PO Q8H PRN (Reason: severe pain (scale score 7-10)) Qty: 6 0RF Rx Instructions: Partial Fill upon patient request. hydromorphone [Dilaudid] 2 mg tablet 2 mg PO Q6H PRN (Reason: pain) Qty: 14 0RF Rx Instructions: Partial Fill upon patient request. ondansetron 4 mg tablet,disintegrating 4 mg PO Q8H PRN (Reason: nausea and vomiting) Qty: 20 0RF nitrofurantoin monohyd/m-cryst [Macrobid] 100 mg capsule 100 mg PO BID 7 Days Qty: 14 0RF Rx Instructions: must administer with a meal/food hydromorphone [Dilaudid] 2 mg tablet 2 mg PO Q6H PRN (Reason: pain) Qty: 12 0RF Rx Instructions: Partial Fill upon patient request. oxycodone 5 mg tablet 5 mg PO BID PRN (Reason: pain (scale score 7-10)) Qty: 10 0RF Rx Instructions: Partial Fill upon patient request. ondansetron HCl 4 mg tablet 4 mg PO BEDTIME PRN (Reason: nausea and vomiting) 4 Days Qty: 7 0RF ketorolac 10 mg tablet 10 mg PO Q8H PRN (Reason: pain) Qty: 15 0RF Rx Instructions: maximum total duration of 5 days from all oral, intranasal, or parenteral formulations oxycodone 5 mg tablet 5 mg PO Q8H PRN (Reason: pain) Qty: 10 0RF Rx Instructions: Partial Fill upon patient request. ondansetron 4 mg tablet,disintegrating 4 mg PO Q6H PRN (Reason: nausea and vomiting) Qty: 20 0RF tamsulosin [Flomax] 0.4 mg capsule 0.4 mg PO DAILY Qty: 14 0RF oxycodone 5 mg tablet 5 mg PO BID PRN (Reason: pain) Qty: 8 0RF Rx Instructions: Partial Fill upon patient request. ondansetron HCl 4 mg tablet 4 mg PO Q6H PRN (Reason: nausea and vomiting) Qty: 14 0RF tamsulosin 0.4 mg capsule 0.4 mg PO DAILY Qty: 10 0RF Interventions: ED Discharge Assessment Last Done: 04/18/24 22:47 Discharge Date/Time: 04/18/24 22:45 Print Language: Georgian
--- NOTE | 2024-04-18 22:13 | PC.NURSE ---
provider instructed tech not to complete labs
--- NOTE | 2024-04-18 22:14 | MHC.EDTECH ---
Provider said to disregards labs .GRETCHEN Griggs aware .
[2024-04-18] MEDS: traMADoL HCL 50 MG TABLET PO (22:29)
[2024-04-18] MEDS: Ondansetron ODT 4 MG TAB.RAPDIS TRANSLINGU (22:29)
[2024-04-18 22:35] LABS: Bacteria Urine 4+ (None Seen); Hyaline Casts Urine 0-2 /LPF (0-2); RBC Urine >20 /HPF (0-2); WBC Urine 0-5 /HPF (0-5)
[2024-04-18 22:47] VITALS: BP 130/88; PULSE 95; RESP 16; TEMP 36; O2SAT 98
== END 2024-04-18 22:45 | disposition home or self-care (01) ==
PROVIDERS: Emergency Provider Internal Medicine
DX: R10.30 Lower abdominal pain, unspecified (principal); R11.2 Nausea with vomiting, unspecified; R05.9 Cough, unspecified; Z79.899 Other long term (current) drug therapy
CPT/HCPCS: 71046; 81001; 81003; 99283; 99284